=== PATIENT | male | born 1935 | race Caucasian/White ===

== ENCOUNTER → 2019-06-15 08:03 | Outpatient (CLI) | payer MEDICARE, SELFPAY ==
[2019-06-15 10:14] LABS: Absolute Lymphocyte Count 2.06 X10^3/uL (0.83-4.51); Absolute Neutrophil Count 3.8 X10^3/uL (2.0-7.7); Basophil# 0.03 X10^3/uL; Basophil% 0.4 % (0-1); Eosinophil# 0.17 X10^3/uL; Eosinophils% 2.5 % (0-5); Hematocrit 38.8 % (40-54); Hemoglobin 12.1 g/dL (13.0-16.5); Lymphocyte # 2.06 X10^3/ul (4.0); Lymphocyte % 29.9 % (19-41); Mean Corp Hgb Conc 31.2 g/dL (32-36); Mean Corpuscular Hgb 28.8 pg (27.0-32.0); Mean Corpuscular Volume 92.4 fL (80-94); Mean Platelet Vol. 10.9 fl (6.2-12.0); Monocyte# 0.76 X10^3/uL; NRBC Flagged by Analyzer 0 % (0-5); Neutrophil # 3.83 X10^3/uL (2.7-7.7); Neutrophil % 55.8 % (47-70); Platelet Count 265 K/mm3 (150-450); RBC Distribution Width CV 14.6 % (11.6-14.6); White Blood Count 6.9 K/mm3 (4.4-11.0)
[2019-06-15 10:28] LABS: Hemoglobin A1c 7.7 % (4.2-6.3)
[2019-06-15 10:29] LABS: Color, Urine Yellow (Yellow); Glucose, Dipstick Normal (Normal); Ketone-Dipstick Negative (Negative); Leukocyte Esterase-Dipstick Negative /ul (Negative); Nitrite-Dipstick Negative (Negative); Occult Blood-Urine 25 /ul (Negative); Protein-Dipstick Negative (Negative); Specific Gravity, Urine 1.015 (1.002-1.030); Urine Bilirubin Dipstick Negative (Negative); Urine Clarity Clear (Clear); Urine Urobilinogen Normal (Normal)
[2019-06-15 10:34] LABS: ALB/GLOB Ratio 0.8 RATIO (0.9-2.4); AST(SGOT) 16 U/L (15-37); Alanine Aminotransfer ALT/SGPT 18 U/L (16-61); Albumin, Serum 3.2 g/dL (3.2-5.0); Alkaline Phosphatase 53 U/L (45-117); Anion Gap 5 (5-15); BUN 37 mg/dL (7-18); Calcium,Total 8.6 mg/dL (8.5-10.1); Chloride 113 mmol/L (98-107); Cholesterol 125 mg/dL (200); Creatinine, Serum 1.54 mg/dL (0.70-1.30); EST Glomerular Filtration Rate 46 mL/min (>60); Est Glom Filt Rate - Afr Amer 56 mL/min (>60); Globulin 4.2 g/dL (2.2-4.2); Glucose 121 mg/dL (74-106); High Density Lipoprotein 42 mg/dL; PSA,Total - Annual Screen 5.34 ng/mL (0.00-4.00); Potassium 4.5 mmol/L (3.5-5.1); Protein, Total 7.4 g/dL (6.4-8.2); Sodium Level 141 mmol/L (136-145); Thyroid Stim Hormone (TSH) 8.76 uIU/mL (0.358-3.74); Triglycerides 92 mg/dL; Very Low Density Lipoprotein 18 mg/dL (5-40)
== END ==
PROVIDERS: Family Provider Family Medicine; PCP Family Medicine; Referring Provider Family Medicine; Visit Provider Family Medicine
DX: Z00.00 Encounter for general adult medical examination without abnormal findings (principal); N28.9 Disorder of kidney and ureter, unspecified; I10 Essential (primary) hypertension; E11.9 Type 2 diabetes mellitus without complications; E78.5 Hyperlipidemia, unspecified; Z12.5 Encounter for screening for malignant neoplasm of prostate
CPT/HCPCS: 36415; 80053; 80061; 81002; 83036; 84153; 84443; 85025; G0103

== ENCOUNTER → 2019-07-17 17:53 | Outpatient (CLI) | payer MEDICARE, SELFPAY ==
[2019-07-17 17:54] LABS: Bacteria 0 SEEN /hpf (None Seen); Mucous, Urine 0 SEEN /hpf (<or=2+)
[2019-07-17 18:24] LABS: Color, Urine Yellow (Yellow); Glucose, Dipstick Normal (Normal); Ketone-Dipstick Negative (Negative); Leukocyte Esterase-Dipstick Negative /ul (Negative); Nitrite-Dipstick Negative (Negative); Occult Blood-Urine 25 /ul (Negative); Protein-Dipstick 15 mg/dl (Negative); Specific Gravity, Urine 1.015 (1.002-1.030); Urine Bilirubin Dipstick Negative (Negative); Urine Clarity Clear (Clear); Urine Urobilinogen Normal (Normal)
[2019-07-17 18:40] LABS: Red Blood Cells-Urine 0-5 SEEN /hpf (0-5); Squamous Epithelial Cells - UA 0-5 SEEN /hpf (0-5); White Blood Cells 0-5 SEEN /hpf (0-5)
== END ==
PROVIDERS: Family Provider Family Medicine; PCP Family Medicine; Referring Provider Nurse Practitioner Adult Health; Visit Provider Nurse Practitioner Adult Health
DX: R31.9 Hematuria, unspecified (principal)
CPT/HCPCS: 81001

== ENCOUNTER → 2019-09-05 09:13 | Outpatient (CLI) | payer MEDICARE, SELFPAY ==
[2019-09-05 12:15] LABS: Hematocrit 36.1 % (40-54); Hemoglobin 11.1 g/dL (13.0-16.5); Mean Corp Hgb Conc 30.7 g/dL (32-36); Mean Corpuscular Hgb 28.8 pg (27.0-32.0); Mean Corpuscular Volume 93.5 fL (80-94); Mean Platelet Vol. 10.7 fl (6.2-12.0); Platelet Count 293 K/mm3 (150-450); RBC Distribution Width CV 14.5 % (11.6-14.6); RBC Distribution Width SD 49.7 fl (35.1-43.9); Red Blood Count 3.86 M/mm3 (4.6-6.2); White Blood Count 6.8 K/mm3 (4.4-11.0)
[2019-09-05 13:03] LABS: Vitamin D,25 Hydroxy 18.7 ng/mL
[2019-09-05 13:07] LABS: Anion Gap 7 (5-15); BUN 38 mg/dL (7-18); BUN/Creat Ratio 22.2 RATIO (10-20); Calcium,Total 8.9 mg/dL (8.5-10.1); Chloride 110 mmol/L (98-107); Creatinine, Serum 1.71 mg/dL (0.70-1.30); EST Glomerular Filtration Rate 41 mL/min (>60); Est Glom Filt Rate - Afr Amer 49 mL/min (>60); Glucose 232 mg/dL (74-106); Potassium 4.7 mmol/L (3.5-5.1); Sodium Level 139 mmol/L (136-145)
[2019-09-05 14:09] LABS: Protein, Urine (Random) 14.5 mg/dL (<11.9); Protein:Creat Ratio 276 mg/g CRE (0-200)
== END ==
PROVIDERS: PCP Family Medicine; Referring Provider Student in an Organized Health Care Education/Training Program; Visit Provider Student in an Organized Health Care Education/Training Program
DX: N18.3 Chronic kidney disease, stage 3 (moderate) (principal)
CPT/HCPCS: 36415; 80048; 82306; 82570; 83970; 84156; 85027

== ENCOUNTER → 2019-12-20 08:05 | Outpatient (CLI) | payer MEDICARE, SELFPAY ==
[2019-12-20 10:40] LABS: Hemoglobin A1c 7.2 % (3.8-5.6)
[2019-12-20 10:57] LABS: ALB/GLOB Ratio 0.7 RATIO (0.9-2.4); AST(SGOT) 16 U/L (15-37); Alanine Aminotransfer ALT/SGPT 18 U/L (16-61); Albumin, Serum 3.2 g/dL (3.2-5.0); Alkaline Phosphatase 59 U/L (45-117); Anion Gap 8 (5-15); BUN 44 mg/dL (7-18); BUN/Creat Ratio 26.3 RATIO (10-20); Chloride 111 mmol/L (98-107); Cholesterol 145 mg/dL (200); Creatinine, Serum 1.67 mg/dL (0.70-1.30); EST Glomerular Filtration Rate 42 mL/min (>60); Est Glom Filt Rate - Afr Amer 51 mL/min (>60); Globulin 4.4 g/dL (2.2-4.2); Glucose 99 mg/dL (74-106); High Density Lipoprotein 37 mg/dL; Potassium 4.5 mmol/L (3.5-5.1); Protein, Total 7.6 g/dL (6.4-8.2); Sodium Level 141 mmol/L (136-145); Thyroid Stim Hormone (TSH) 7.37 uIU/mL (0.358-3.74); Triglycerides 109 mg/dL; Very Low Density Lipoprotein 22 mg/dL (5-40)
== END ==
PROVIDERS: PCP Family Medicine; Referring Provider Family Medicine; Visit Provider Family Medicine
DX: E03.9 Hypothyroidism, unspecified (principal); N28.9 Disorder of kidney and ureter, unspecified; I10 Essential (primary) hypertension; E78.5 Hyperlipidemia, unspecified; E11.9 Type 2 diabetes mellitus without complications
CPT/HCPCS: 36415; 80053; 80061; 83036; 84443

== ENCOUNTER 2020-04-19 05:56 | Inpatient (IN) | payer MEDICARE, SELFPAY ==
[2020-04-19] VITALS (34 sets, daily range): BP systolic 112–175; BP diastolic 52–101; PULSE 56–90; RESP 12–34; TEMP 36.1–37.7; O2SAT 88–97; BMI 38.9
--- NOTE | 2020-04-19 06:04 | EKG12_ITS ---
Test Reason : SOB Blood Pressure : / mmHG Vent. Rate : 081 BPM Atrial Rate : 081 BPM P-R Int : 180 ms QRS Dur : 088 ms QT Int : 366 ms P-R-T Axes : 026 -09 006 degrees QTc Int : 425 ms Normal sinus rhythm Normal ECG Confirmed by ROBERT BARNETT, JOSE ([id number]), story editor STAN ALVAREZ ([id number]) on 05/02/2020 9:49:52 A M Referred By: RANJEET Confirmed By:DARWIN JONES MD
--- NOTE | 2020-04-19 06:06 | ED.DCSUM_ITS ---
History of Present Illness Chief Complaint: Shortness of Breath Informant: Patient, EMS Onset: Days - 3 Activity at onset: - - gradual onset Timing: Continuous Quality: - - short of breath. Negative for: Wheezing Current Severity: Mild Maximum Severity: Moderate Worsened by: Exertion Relieved by: Oxygen Associated Symptoms: Chills, Cough - chronic, not necessarily worse; related to my allergies''. Negative for: Bloody Sputum, Fever, Rhinorrhea, Sore throat Chest Pain: None Narrative: 84-year-old male diabetic has been feeling very fatigued and ill for the last 3 days. This morning he was so weak he could not stand. Yesterday he needed to use his walker which he usually does not require. Worsening dyspnea, cough does not seem necessarily worse than usual. Achy all over. States that he was in [place] about a week ago for a wedding, when asked if people were safe and wearing masks, he states no. He states that a family member is sick with similar symptoms and it started within the last couple days after he became ill. Patient has not been to the doctor, and this is the first visit this patient has had to a physician for this illness. Does not wear home oxygen, was 78% on room air for EMS, they placed him on 12 L nonrebreather brought him up to the 90s. Patient states that feels much better. - Past Medical History (1) Diabetes mellitus Status: Chronic (2) Asthma Status: Chronic Past Medical History - Allergies and Home Meds Allergies/Adverse Reactions: Allergies No Known Allergies Allergy (Verified 04/19/20 06:11) Lives: Spouse/ Significant Other - Family History Paternal Family History: Reports: No pertinent history Maternal Family History: Reports: No pertinent history Review of Systems General: Reports: Chills, Malaise. Denies: Fever, Sweats Eyes: Denies: Visual changes - bilaterally, Diplopia ENT: Denies: Bilateral ear pain, Rhinorrhea, Sore throat Cardiovascular: Denies: Chest pain, Palpitations Respiratory: Reports: Dyspnea, Cough, Dyspnea on exertion. Denies: Sputum, Orthopnea Gastrointestinal: Denies: Abdominal pain, Nausea, Vomiting, Diarrhea, Melena, Hematochezia Genitourinary: Denies: Dysuria, Hematuria, Frequency Musculoskeletal: Reports: Myalgias, Swelling - chronic BLE, unchanged. Denies: Neck pain, Back pain, Extremity Pain Skin: Reports: Rash - chronic dry skin, red, BLE. Denies: Wounds Neurological: Denies: Headache, Weakness, Numbness Physical Exam Inital Vital Signs reviewed: Yes General: Well nourished, Well developed, No Acute Distress Head: Normocephalic, Atraumatic Eyes: Perrl, EOMI ENT: Moist mucous membranes, No rhinorrhea Neck: Supple, Nontender, No lymphadenopathy, No JVD Cardiovascular: Regular rate, Regular rhythm, No murmurs Respiratory: No distress, Chest nontender, Rales - R base, Rhonchi - R base Abdomen: Soft, Nontender, Nondistended, Normal bowel sounds Back: Nontender, Normal Inspection Extremities: Nontender, Edema - BLE 1+ w/ signs of stasis dermatitis Skin: Normal color, No rash, No Trauma Neurological: Alert, Oriented x3, Cranial nerves II-XII grossly intact, Normal Strength, Normal Sensation Psychological: Normal affect, Normal Mood Diagnostic/Tx/Re-eval Laboratory Tests 04/19/20 04/19/20 Range/Units 06:08 06:08 WBC 13.6 H (4.4-11.0) K/mm3 RBC 3.47 L (4.6-6.2) M/mm3 Hgb 10.4 L (13.0-16.5) g/dL Hct 32.4 L (40-54) % MCV 93.4 (80-94) fL MCH 30.0 (27.0-32.0) pg MCHC 32.1 (32-36) g/dL RDW Std Deviation 47.3 H (35.1-43.9) fl RDW Coeff of Hakan 13.8 (11.6-14.6) % Plt Count 308 (150-450) K/mm3 MPV 10.7 (6.2-12.0) fl Immature Gran % (Auto) 1.000 H (0.0-0.9) % Neut % (Auto) 87.2 H (47-70) % Lymph % (Auto) 6.1 L (19-41) % [place] % (Auto) 4.9 (0-10) % Eos % (Auto) 0.7 (0-5) % Baso % (Auto) 0.1 (0-1) % Absolute Neuts (auto) 11.9 H (2.0-7.7) X10^3/uL Absolute Lymphs (auto) 0.83 (0.83-4.51) X10^3/uL Nucleated RBC % 0 (0-5) % Sodium 131 L (136-145) mmol/L Potassium 4.2 (3.5-5.1) mmol/L Chloride 101 (98-107) mmol/L Carbon Dioxide 21.0 (21.0-32.0) mmol/L Anion Gap 9 (5-15) BUN 50 H (7-18) mg/dL Creatinine 2.51 H (0.70-1.30) mg/dL Estim Creat Clear Calc 20.85 ml/min Est GFR (MDRD) Af Amer 32 L (>60) mL/min Est GFR (MDRD) Non-Af 26 L (>60) mL/min BUN/Creatinine Ratio 19.9 (10-20) RATIO Glucose 205 H (74-106) mg/dL Calcium 8.4 L (8.5-10.1) mg/dL Total Bilirubin 0.40 (0.20-1.00) mg/dL AST 30 (15-37) U/L ALT 25 (16-61) U/L Alkaline Phosphatase 58 (45-117) U/L Troponin I < 0.015 (<0.045) ng/mL Total Protein 7.8 (6.4-8.2) g/dL Albumin 2.4 L (3.2-5.0) g/dL Globulin 5.4 H (2.2-4.2) g/dL Albumin/Globulin Ratio 0.4 L (0.9-2.4) RATIO - Rhythm Strip Rhythm Strip: Sinus Rhythm Rate: 81 Ectopy: None - EKG Initial EKG Interpretation: Sinus Rhythm, No Acute Injury Pattern - normal EKG Prior: Unchanged Treatment - Dyspnea: Oxygen, Albuterol, Antibiotics, Steroid - Medical Decision Making Patient was feeling better with regards to his dyspnea on oxygen. COVID-19 is highly suspected. Given his pneumonia in the meantime he was covered empirically with antibiotics. He has TIFFANI so IV fluids were started, he remained hemodynamically stable, but his oxygenation suffered on a high flow nasal cannula, so he was upgraded to a nonrebreather, during which he desatted into the 80s as well. The patient and his discussed with staff that he wished to be DNR Comfort Care arrest, and did not want to be intubated if it came to that. We had them sign the DNR form of [place] to accompany his chart. He was amenable to trying BiPAP which he tolerated and worked well to oxygenate him better. Awaiting COVID-19 swab that was sent stat. Plan is ICU admission. COVID-19 swab returned positive. Critical care time (excluding procedures): 30-74 minutes - 35 minutes, including time spent discussing with patient's family consultants arranging admission and performing direct patient care to bedside, placing the patient on BiPAP. ED Disposition - Plan for ED Patient: Disposition: Acute Care Hospital [facility] Diagnosis: TIFFANI (acute kidney injury), Acute respiratory failure with hypoxia, Sepsis, Pneumonia due to COVID-19 virus
[2020-04-19] MEDS: 0.9% Normal Saline 1,000 ML 125 ML IV (06:20)
[2020-04-19 06:25] LABS: Absolute Lymphocyte Count 0.83 X10^3/uL (0.83-4.51); Absolute Neutrophil Count 11.9 X10^3/uL (2.0-7.7); Basophil# 0.02 X10^3/uL; Basophil% 0.1 % (0-1); Eosinophil# 0.09 X10^3/uL; Eosinophils% 0.7 % (0-5); Hematocrit 32.4 % (40-54); Hemoglobin 10.4 g/dL (13.0-16.5); Lymphocyte # 0.83 X10^3/ul (4.0); Lymphocyte % 6.1 % (19-41); Mean Corp Hgb Conc 32.1 g/dL (32-36); Mean Corpuscular Volume 93.4 fL (80-94); Mean Platelet Vol. 10.7 fl (6.2-12.0); Monocyte# 0.67 X10^3/uL; Monocyte% 4.9 % (0-10); NRBC Flagged by Analyzer 0 % (0-5); Neutrophil # 11.86 X10^3/uL (2.7-7.7); Neutrophil % 87.2 % (47-70); Platelet Count 308 K/mm3 (150-450); RBC Distribution Width CV 13.8 % (11.6-14.6); RBC Distribution Width SD 47.3 fl (35.1-43.9); Red Blood Count 3.47 M/mm3 (4.6-6.2); White Blood Count 13.6 K/mm3 (4.4-11.0)
--- NOTE | 2020-04-19 06:40 | RAD_ITS ---
STUDY: X-RAY CHEST REASON FOR EXAM: Male, 84 years old. COUGH TECHNIQUE: Single AP portable view of the chest. COMPARISON: None. FINDINGS: Ill-defined subpleural groundglass opacities are seen more prominent in the lung bases , may represent atypical pneumonia or viral pneumonia (COVID-19 ?). There is no demonstrated pleural abnormality. Normal size heart. Normal mediastinum and jeffy. Normal visualized pulmonary arteries. Normal visualized aortic arch and descending thoracic aorta. Normal visualized thoracic spine. There is degenerative osteoarthritis of the bilateral shoulders. There is no demonstrated abnormality of the visualized soft tissue structures of the upper abdomen. RAD/Chest 1 View (Portable) IMPRESSION: Degenerative changes, as described above. Ill-defined subpleural groundglass opacities are seen more prominent in the lung bases , may represent atypical pneumonia or viral pneumonia (COVID-19 ?). Electronically Signed: Adonay Rm, at 7:22 EDT Tel , Service support ,
[2020-04-19 06:42] LABS: ALB/GLOB Ratio 0.4 RATIO (0.9-2.4); AST(SGOT) 30 U/L (15-37); Alanine Aminotransfer ALT/SGPT 25 U/L (16-61); Albumin, Serum 2.4 g/dL (3.2-5.0); Alkaline Phosphatase 58 U/L (45-117); Anion Gap 9 (5-15); BUN 50 mg/dL (7-18); BUN/Creat Ratio 19.9 RATIO (10-20); Calcium,Total 8.4 mg/dL (8.5-10.1); Chloride 101 mmol/L (98-107); Creatinine, Serum 2.51 mg/dL (0.70-1.30); EST Glomerular Filtration Rate 26 mL/min (>60); Est Glom Filt Rate - Afr Amer 32 mL/min (>60); Estimated Creatinine Clearance 20.85 ml/min; Globulin 5.4 g/dL (2.2-4.2); Glucose 205 mg/dL (74-106); Potassium 4.2 mmol/L (3.5-5.1); Protein, Total 7.8 g/dL (6.4-8.2); Sodium Level 131 mmol/L (136-145)
[2020-04-19 06:53] LABS: Lactic Acid 1.4 mmol/L (0.4-1.9)
--- NOTE | 2020-04-19 06:57 | CPS ---
Patient on 14lpm high flow nasal cannula
[2020-04-19] MEDS: Ceftriaxone 1 GM/50 ML BAG IV (07:06)
[2020-04-19] MEDS: dexAMETHasone 10 MG/ML Vial 6 MG IV (08:12)
--- NOTE | 2020-04-19 08:14 | NURSING ---
ICU 8
--- NOTE | 2020-04-19 08:25 | ED.RN ---
icu will call back for report
[2020-04-19 08:30] LABS: D-Dimer Quantitative (DVT/PE) 2.78 FEU/ug/m (0.27-0.49)
--- NOTE | 2020-04-19 10:52 | CON.PCM_ITS ---
Problem List (1) Diabetes mellitus Status: Chronic Qualifiers: Diabetes mellitus type: type 2 Diabetes mellitus senior living insulin use: without terminal press operator use Diabetes mellitus complication status: with kidney complications Diabetes mellitus complication detail: with chronic kidney disease Chronic kidney disease stage: stage 3 (moderate) Chronic kidney disease stage 3 subtype: stage 3a (GFR 45-59) Qualified Code(s): E11.21 - Type 2 diabetes mellitus with diabetic nephropathy; N18.31 - Chronic kidney disease, stage 3a (2) Asthma Status: Chronic Qualifiers: Asthma severity: mild Asthma persistence: intermittent Asthma co mplication type: unspecified Qualified Code(s): J45.20 - Mild intermittent asthma, uncomplicated (3) TIFFANI (acute kidney injury) Status: Acute (4) Pneumonia Status: Acute (5) Acute respiratory failure with hypoxia Status: Acute (6) Sepsis Status: Acute (7) COVID-19 Status: Acute Reason for Consult Date of Consultation: 04/19/20 Reason for Consultation: Respiratory failure History of Present Illness: The patient is an 84 year old M, with past medical history listed below, who presented to [facility] on 04/19/2020 via EMS secondary to a gradual onset of shortness of breath, chills and body aches. Patient had originally thought the cough was secondary to his allergies, but shortness of breath became progressively worse. Patient stated that this morning he was so weak that he could not stand and yesterday had a new onset need for a walker. Patient stated that he was in [place] in March for a wedding were mass were not used. Patient does report a family member with similar type symptoms. Patient reportedly had not been seen by primary care physician prior to transport. On EMS, patient was noted to be hypoxic at 78% on room air and was placed on a nonrebreather to transport to the emergency department. On arrival to the emergency department, patient was improved from a dyspneic standpoint on a nonrebreather. Patient had a chest x-ray showing bilateral infiltrates, so was initiated on antibiotics. Patient also had an acute worsening in renal function, so was placed on IV fluids. Patient's oxygenation continue to decrease with saturations in the 80s despite a nonrebreather. Patient was noted to be a DNR Comfort Care arrest without intubation, but was placed on BiPAP with good response. Laboratory work-up was significant for a leukocytosis of 13.6 with hemoglobin of 10.4. Chemistries show hyponatremia at 131 with bicarbonate of 21, BUN 50 and creatinine of 2.5. Glucose was slightly elevated at 205. Liver function tests were within normal limits. Patient was then transported to the intensive care unit for further evaluation. On arrival to the intensive care unit, patient reports his situation is much improved compared to previous. Patient denies any GI symptoms such as nausea, vomiting or diarrhea. Patient does have chronic lower extremity wounds on the anterior aspect that he attributes to diabetes and states these are grossly unchanged compared to previous. Patient does report a history of asthma, but does not use any inhalers at baseline. Patient reports he has had diabetes for several years. Patient's blood sugar tends to be in the 130s to 40s. Patient states he can become symptomatic at about 100. Review of systems otherwise negative from a constitutional, HEENT, respiratory, cardiovascular, GI, genitourinary, musculoskeletal, skin, neurologic, psychiatric and hematologic system unless stated above. Past Medical History Past Medical History (Chronic Problems): Chronic Problems Diabetes mellitus (Chronic) Asthma (Chronic) Allergies No Known Allergies Allergy (Verified 04/19/20 06:11) Home Medications: Ambulatory Orders Medication Instructions Recorded Levothyroxine [Synthroid] 125 mcg PO DAILY 04/19/20 Losartan Potassium [Cozaar] 50 mg PO DAILY 04/19/20 Simvastatin 20 mg PO DAILY 04/19/20 metFORMIN HCl 04/19/20 Lives: Spouse/ Significant Other Smoking Status: Never smoker Review of Systems Comment: See HPI Patient Problems: Active and Suspected Problems TIFFANI (acute kidney injury) (Acute) Pneumonia (Acute) Acute respiratory failure with hypoxia (Acute) Sepsis (Acute) Objective: All imaging was personally reviewed. Chest x-ray shows bilateral infiltrates with possible left-sided pleural effusion. Patient has no pulmonary function test or echocardiogram available for review. - Physical Exam Vitals/I&O's: Vital Signs Temp Pulse Resp BP Pulse Ox 36.6 C 75 33 H 131/57 H 95 04/19/20 08:05 04/19/20 08:05 04/19/20 08:05 04/19/20 08:05 04/19/20 08:05 Oxygen Flow Rate (L/min) 14 Oxygen Delivery Method Bi-pap Weight: 112.582 kg Body Mass Index (BMI) 38.8 Intake and Output for Last 24 Hours 04/17/20 04/18/20 04/19/20 23:59 23:59 23:59 Intake Total 305 / 305 Output Total 200 / 200 Balance 105 / 105 General: Alert, Oriented x3, Cooperative, No apparent distress - On BiPAP therapy, - - Moderate conversational dyspnea. HEENT: Atraumatic, PERRLA, EOMI, Normocephalic, - - No scleral icterus or injection noted Oral: Moist Mucosa, No Gingival or Mucosal Lesions/ Ulcerations Neck: Supple, No JVD, No Nodes, Trachea Midline Lungs: No rhonchi, No wheeze, Diminished, Rales - Bilateral bases Cardiovascular: Regular rate, Regular Rhythm, Normal S1, Normal S2, No murmurs, No rub noted, No Gallop Abdomen: Bowel Sounds Present, Soft, Non Tender, Non-Distended, Obese Extremities: No clubbing, No cyanosis, Edema - Bilateral lower extremities Skin: - - Psoriatic type rash noted on the anterior aspect of bilateral legs. Some surrounding erythema without streaking, crepitus or induration Musculoskeletal: No Tenderness to Palpation of Joints or Extremities Lymphatic: No Cervical, Supraclavicular, or Inguinal Adenopathy Neurological: Cranial nerves II-XII grossly intact, Deep Tendon Reflexes 2+/4 and Symmetrical, Neuro grossly intact Psych/Mental Status: Alert and oriented to time, place, person, mood and affect Laboratory Results 04/19/20 06:08: WBC 13.6 H, RBC 3.47 L, Hgb 10.4 L, Hct 32.4 L, MCV 93.4, MCH 30.0, MCHC 32.1, RDW Std Deviation 47.3 H, RDW Coeff of Hakan 13.8, Plt Count 308, MPV 10.7, Immature Gran % (Auto) 1.000 H, Neut % (Auto) 87.2 H, Lymph % (Auto) 6.1 L, [place] % (Auto) 4.9, Eos % (Auto) 0.7, Baso % (Auto) 0.1, Absolute Neuts (auto) 11.9 H, Absolute Lymphs (auto) 0.83, Nucleated RBC % 0 04/19/20 06:08: Sodium 131 L, Potassium 4.2, Chloride 101, Carbon Dioxide 21.0, Anion Gap 9, BUN 50 H, Creatinine 2.51 H, Estim Creat Clear Calc 20.85, Est GFR (MDRD) Af Amer 32 L, Est GFR (MDRD) Non-Af 26 L, BUN/Creatinine Ratio 19.9, Glucose 205 H, Calcium 8.4 L, Total Bilirubin 0.40, AST 30, ALT 25, Alkaline Phosphatase 58, Troponin I < 0.015, Total Protein 7.8, Albumin 2.4 L, Globulin 5.4 H, Albumin/Globulin Ratio 0.4 L 04/19/20 06:08: Lactic Acid 1.4 04/19/20 06:08: D-Dimer Quant (PE/DVT) 2.78 H* 04/19/20 06:10: COVID-19 (CAITLIN) Detected Current Medications Acetaminophen (Acetaminophen 325 Mg Tablet) 650 mg PO Q6H PRN PRN PRN Reason: Pain Score 1-10/Temp > 100.7 F Albuterol Sulfate (Albuterol Sulfate 8 Gm Inhaler (60 Puffs)) 2 puff INHALATION Q6HWA.RT ZENA Albuterol Sulfate (Albuterol Sulfate 8 Gm Inhaler (60 Puffs)) 2 puff INHALATION Q2H PRN PRN PRN Reason: SOB/Wheezing Apixaban (Apixaban 2.5 Mg Tablet) 2.5 mg PO BID ZENA Atorvastatin Calcium (Atorvastatin Calcium 10 Mg Tablet) 10 mg PO DAILY ZENA Dexamethasone Sodium Phosphate (Dexamethasone 10 Mg/Ml Vial) 6 mg IV DAILY ZENA Sodium Chloride () 1,000 mls @ 125 mls/hr IV .Q8H ZENA Last Admin: 04/19/20 06:20 Dose: 125 mls/hr Documented by: Sodium Chloride () 250 mls @ 15 mls/hr IV .[id number] PRN PRN Reason: Saline Flush Sodium Chloride () 250 mls @ 15 mls/hr IV .[id number] PRN PRN Reason: Additional IVPB Infusion Remdesivir (Investigational) (200 mg/ Sodium Chloride) 250 mls @ 125 mls/hr IV X1 ONE; Protocol Stop: 04/19/20 12:59 Remdesivir (Investigational) (100 mg/ Sodium Chloride) 250 mls @ 125 mls/hr IV DAILY ZENA; Protocol Stop: 04/23/20 11:59 Insulin Human Lispro (Insulin Lispro 100 Unit/Ml Insuln.Pen) 0 unit SC Q6 ZENA; Protocol Levothyroxine Sodium (Levothyroxine 125 Mcg Tablet) 125 mcg PO DAILY [facility] Losartan Potassium (Losartan Potassium 50 Mg Tablet) 50 mg PO DAILY [facility] Nystatin (Nystatin Powder 15gm Bottle) 1 applic TOPICAL BID [facility]; Protocol Sodium Chloride (0.9% Saline Lock 10 Ml Syringe) 10 - 40 ml IV UD PRN PRN Reason: SALINE FLUSH Assessment/Plan Active and Suspected Problems TIFFANI (acute kidney injury) (Acute) Pneumonia (Acute) Acute respiratory failure with hypoxia (Acute) Sepsis (Acute) RECOMMENDATIONS: 1. Initiate Remdesivir, steroids and anticoagulation 2. Obtain type and screen for convalescent serum 3. Obtain CRP and pro calcitonin 4. Wean oxygen as tolerated 5. BiPAP breaks for meds only 6. Confirmed DNR Comfort Care arrest without intubation 7. Initiate monitoring labs for investigational drugs 8. Empiric antibiotics for pneumonia pending culture results IMPRESSIONS: 1. Acute hypoxic respiratory failure secondary to COVID-19 Unclear etiology at this time. Patient does have a significant leukocytosis with left shift. Patient will be placed on empiric antibiotics pending culture results. Given patient's marginal respiratory status, high oxygen requirements and CODE STATUS, patient has agreed to Remdesivir, steroids, anticoagulation and convalescent serum. Patient will need type and screen completed. Will obtain a CRP and pro calcitonin to help direct future antibiotics. Cultures have been ordered. 2. Acute on chronic kidney disease stage III Clinical suspicion for prerenal etiology secondary to hypoxia and increased insensible losses. Patient did receive some fluid in the ER. Patient has some rales on exam and it is unclear if this is secondary to COVID-19 versus fluid overload. Will treat patient with fluid boluses as necessary for urine output to avoid overload. Patient's Cozaar will be discontinued until renal function stabilizes. No indication for renal replacement therapy at this time. 3. Diabetes mellitus type 2 Patient has been placed on Decadron secondary to COVID-19. Will need to follow blood sugars very closely. Patient may require basal insulin, but await 24 hours for coverage requirements. 4. Obesity/advanced age/hyperlipidemia/hypothyroidism Complicates care, management, recovery and prognosis. Okay to continue with baseline medications except for Cozaar secondary to acute kidney injury. TIME: 33 minutes critical care time spent addressing patient's acute hypoxic respiratory failure, acute kidney injury, diabetes mellitus, COVID-19, review of all data and collaboration with care team (9:30 AM to 11 AM) [id number]: [id number] Critical care first hour
[2020-04-19 12:35] LABS: Allen Test Positive; Base Excess -7 mmol/L (-2 to +2); Bicarbonate 18.7 mmol/L (22-26); Blood Gas Specimen Type ART; FI02 65; O2 Delivery Device BiPAP; PEEP 7; PO2 64 mmHG (75-100); SITE R Radial; SO2 91 % (95-99); Total Carbon Dioxide 20 mmol/L; pCO2 33.3 mmHg (35-45); pH 7.36 (7.35-7.45)
[2020-04-19] MEDS: Insulin Lispro 100 UNIT/ML INSULN.PEN SC ×3 (12:37→20:29)
[2020-04-19] MEDS: Nystatin Powder 15gm Bottle 1 APPLIC TOPICAL ×2 (12:38→20:32)
[2020-04-19] MEDS: APIXABAN 2.5 MG TABLET PO ×2 (12:38→20:29)
[2020-04-19] MEDS: Levothyroxine 125 MCG Tablet PO (12:38)
[2020-04-19 13:11] LABS: Alkaline Phosphatase 55 U/L (45-117)
[2020-04-19] MEDS: Albuterol Sulfate 8 gm Inhaler (60 puffs) 2 PUFF INHALATION ×2 (13:11→20:20)
[2020-04-19 13:59] LABS: Procalcitonin 1.43 ng/mL (0.00-0.09)
--- NOTE | 2020-04-19 14:35 | PCM.HP.STD ---
Problem List (1) Shortness of breath Status: Acute (2) Weakness Status: Acute (3) Nonproductive cough Status: Acute History of Present Illness Date of Admission: 04/19/20 Chief Complaint: Shortness of breath, generalized weakness, nonproductive cough The patient is a 84 year old M who was seen in the emergency room today after being brought in by squad for complaints of shortness of breath, cough, generalized weakness, and fever at home. Patient also complained of chills. Patient's states the patient had been complaining of the symptoms all week long but it was not until yesterday that he ran a temperature at home. Patient denies any sick contacts recently. Work-up in the emergency room occluded labs which showed an elevated white blood cell count at 13.6, hemoglobin was 10.4, D-dimer was elevated at 2.78, CMP revealed a creatinine of 2.51, BUN of 50, and glucose of 205. Patient's troponin was not elevated, pro calcitonin was elevated at 1.43. Patient had chest x-ray which showed bilateral diffuse infiltrates, he required BiPAP in the emergency room for adequate oxygenation, ABG on BiPAP revealed a pH of 7.36, PCO2 is 33.3, and PO2 of 64.- this was on 65% O2. Discussions were carried out with the patient and his concerning CODE STATUS, he confirmed that he has a DO NOT RESUSCITATE no intubation patient but would except aggressive care otherwise. Patient was admitted to ICU, pulmonary medicine will consult on patient, he was given Zithromax and Rocephin in the emergency room, he was also placed on dexamethasone, he was placed on Eliquis due to his elevated D-dimer. Past Medical History Past Medical History (Chronic Problems): Chronic Problems Diabetes mellitus (Chronic) Asthma (Chronic) Allergies No Known Allergies Allergy (Verified 04/19/20 06:11) Home Medications: Ambulatory Orders Medication Instructions Recorded Levothyroxine [Synthroid] 125 mcg PO DAILY 04/19/20 Losartan Potassium [Cozaar] 50 mg PO DAILY 04/19/20 Simvastatin 20 mg PO DAILY 04/19/20 metFORMIN HCl 04/19/20 Surgical History: herniorrhaphy Psychiatric History: No pertinent psych hx Lives: Spouse/ Significant Other Smoking Status: Never smoker Tobacco Use: Non-smoker Alcohol: None Drugs: None - *Family History Paternal History Items: No pertinent history Maternal History Items: No pertinent history Review of Systems Constitutional: Reports: Fever, Malaise, Weakness, Fatigue. Denies: Anorexia, Chills, Night Sweats, Weight Change Eyes: Denies: Cataracts, Conjunctivae Inflammation, Double vision, Drainage HEENT: Denies: Difficulty Swallowing, Dysphasia, Ear Pain, Eye Pain, Hearing Changes, Nasal bleeding, Nasal Congestion, Post Nasal Drip Cardiovascular: Denies: Chest Pain, Claudication, Chest Pressure, Chest Tightness, Edema, Palpitations Respiratory: Reports: Cough, Shortness of Breath, Shortness of breath at rest, Shortness of breath upon exertion. Denies: Hemoptysis, Sputum production Gastrointestinal: Denies: Abdominal Pain, Constipation, Diarrhea, Hematemesis, Hematochezia, Nausea, Melena, Vomiting Genitourinary: Denies: Dysuria, Frequency, Hematuria, Hesitancy, Nocturia, Retention, Urgency Musculoskeletal: Denies: Joint Pain, Joint stiffness, Joint swelling Skin: Denies: Dryness, Jaundice, Pruritis, Rash Neurological: Denies: Blurred vision, Double vision, Change in Speech, Slurred speech, Difficulty swallowing, Focal weakness, Incoordination, Numbness, Tingling Psychiatric: Denies: Anxiety, Depression, Homicidal Ideations, Suicidal Ideations Endocrine: Denies: Change in Body Habitus, Heat/ Cold Intolerance, Polydipsia, Polyuria Hematologic/ Lymphatic: Denies: Adenopathy, Anemia, Easy Bruising, Easy Bleeding, Petechiae, Purpura VTE Information - Inpt Only VTE Present on Admission: No VTE Mechan Device Prophylaxis: None VTE Pharm Prophylaxis ordered?: No Reason prophylaxis not ordered:: Treatment Not Indicated - Patient will be placed on Eliquis 2.5 mg twice daily Patient Problems: Active and Suspected Problems TIFFANI (acute kidney injury) (Acute) Pneumonia (Acute) Acute respiratory failure with hypoxia (Acute) Sepsis (Acute) COVID-19 (Acute) Shortness of breath (Acute) Weakness (Acute) Nonproductive cough (Acute) - Physical Exam Vitals/I&O's: Vital Signs Temp Pulse Resp BP Pulse Ox 97.5 F L 58 L 31 H 119/75 93 04/19/20 12:00 04/19/20 14:00 04/19/20 14:00 04/19/20 14:00 04/19/20 14:00 Oxygen Flow Rate (L/min) 14 Oxygen Delivery Method Nasal Cannula Weight: 112.582 kg Body Mass Index (BMI) 38.8 Intake and Output for Last 24 Hours 04/17/20 04/18/20 04/19/20 23:59 23:59 23:59 Intake Total 1100.83 / 1100.83 Output Total 200 / 200 Balance 900.83 / 900.83 General: Alert, Oriented x3, Cooperative, Well developed, Well nourished HEENT: Atraumatic, PERRLA, EOMI, Normocephalic Oral: Moist Mucosa Neck: Supple, No JVD, Negative Carotid Bruits, No Nuchal Rigidity, Trachea Midline, Thyroid Normal Size and Texture Lungs: Clear to auscultation, Normal air movement, No rhonchi, No wheeze, No rales Cardiovascular: Regular rate, Regular Rhythm, Normal S1, Normal S2, No murmurs, PMI Normal, No rub noted, No Gallop Abdomen: Bowel Sounds Present, Soft, Non Tender, Non-Distended Extremities: No clubbing, No cyanosis, No edema, Capillary Refill Less than 3 Seconds Skin: No rashes, No breakdown Musculoskeletal: No Tenderness to Palpation of Joints or Extremities Neurological: Cranial nerves II-XII grossly intact, Neuro grossly intact, Sensory exam intact to light touch and pain, Coordination normal Psych/Mental Status: Normal Affect, Appropriate, Alert and oriented to time, place, person, mood and affect Laboratory Results 04/19/20 06:08: WBC 13.6 H, RBC 3.47 L, Hgb 10.4 L, Hct 32.4 L, MCV 93.4, MCH 30.0, MCHC 32.1, RDW Std Deviation 47.3 H, RDW Coeff of Hakan 13.8, Plt Count 308, MPV 10.7, Immature Gran % (Auto) 1.000 H, Neut % (Auto) 87.2 H, Lymph % (Auto) 6.1 L, [place] % (Auto) 4.9, Eos % (Auto) 0.7, Baso % (Auto) 0.1, Absolute Neuts (auto) 11.9 H, Absolute Lymphs (auto) 0.83, Nucleated RBC % 0 04/19/20 06:08: Sodium 131 L, Potassium 4.2, Chloride 101, Carbon Dioxide 21.0, Anion Gap 9, BUN 50 H, Creatinine 2.51 H, Estim Creat Clear Calc 20.85, Est GFR (MDRD) Af Amer 32 L, Est GFR (MDRD) Non-Af 26 L, BUN/Creatinine Ratio 19.9, Glucose 205 H, Calcium 8.4 L, Total Bilirubin 0.40, AST 30, ALT 25, Alkaline Phosphatase 58, Troponin I < 0.015, Total Protein 7.8, Albumin 2.4 L, Globulin 5.4 H, Albumin/Globulin Ratio 0.4 L 04/19/20 06:08: Lactic Acid 1.4 04/19/20 06:08: D-Dimer Quant (PE/DVT) 2.78 H* 04/19/20 06:10: COVID-19 (CAITLIN) Detected 04/19/20 11:41: Specimen Type ART, Sample Site R Radial, pH 7.36, Bicarbonate Actual 18.7 L, Total CO2 20, Base Excess -7 L, O2 Saturation 91 L, O2 % 65, ABG pCO2 33.3 L, ABG pO2 64 L, Stone Test Positive, O2 Delivery Device BiPAP, POC PEEP 7 04/19/20 12:30: Alkaline Phosphatase 55, C-React Prot Ext Range 251.00 H 04/19/20 12:30: Procalcitonin 1.43 H 04/19/20 12:30: Blood Type A POSITIVE, Antibody Screen NEGATIVE Current Medications Acetaminophen (Acetaminophen 325 Mg Tablet) 650 mg PO Q6H PRN PRN PRN Reason: Pain Score 1-10/Temp > 100.7 F Albuterol Sulfate (Albuterol Sulfate 8 Gm Inhaler (60 Puffs)) 2 puff INHALATION Q6HWA.RT [facility] Last Admin: 04/19/20 13:11 Dose: 2 puff Documented by: Albuterol Sulfate (Albuterol Sulfate 8 Gm Inhaler (60 Puffs)) 2 puff INHALATION Q2H PRN PRN PRN Reason: SOB/Wheezing Apixaban (Apixaban 2.5 Mg Tablet) 2.5 mg PO BID [facility] Last Admin: 04/19/20 12:38 Dose: 2.5 mg Documented by: Atorvastatin Calcium (Atorvastatin Calcium 10 Mg Tablet) 10 mg PO DAILY [facility] Dexamethasone Sodium Phosphate (Dexamethasone 10 Mg/Ml Vial) 6 mg IV DAILY [facility]ENA Sodium Chloride () 250 mls @ 15 mls/hr IV .[id number] PRN PRN Reason: Saline Flush Sodium Chloride () 250 mls @ 15 mls/hr IV .[id number] PRN PRN Reason: Additional IVPB Infusion Remdesivir (Investigational) (100 mg/ Sodium Chloride) 250 mls @ 125 mls/hr IV DAILY ZENA; Protocol Stop: 04/23/20 11:59 Insulin Human Lispro (Insulin Lispro 100 Unit/Ml Insuln.Pen) 0 unit SC Q6 [facility]ENA; Protocol Last Admin: 04/19/20 12:37 Dose: 6 u Documented by: Levothyroxine Sodium (Levothyroxine 125 Mcg Tablet) 125 mcg PO DAILY [facility] Last Admin: 04/19/20 12:38 Dose: 125 mcg Documented by: Nystatin (Nystatin Powder 15gm Bottle) 1 applic TOPICAL BID ZENA; Protocol Last Admin: 04/19/20 12:38 Dose: 1 applic Documented by: Sodium Chloride (0.9% Saline Lock 10 Ml Syringe) 10 - 40 ml IV UD PRN PRN Reason: SALINE FLUSH Assessment/Plan All Active Problems TIFFANI (acute kidney injury) (Acute) Pneumonia (Acute) Acute respiratory failure with hypoxia (Acute) Sepsis (Acute) COVID-19 (Acute) Shortness of breath (Acute) Weakness (Acute) Nonproductive cough (Acute) #1 acute COVID-19 infection with bilateral pneumonia-patient will be admitted to ICU, he will be placed on antibiotics until cultures result negative, critical care will see the patient, patient was given IV dexamethasone in the emergency room #2 acute hypoxic respiratory failure secondary to COVID-19 infection with bilateral pneumonia-patient is currently on BiPAP at the time of his admission to ICU, oxygen will be titrated if possible #3 acute bilateral community-acquired pneumonia-probably secondary to COVID-19 infection, bacterial infection is not excluded at this time, patient will be maintained on Zosyn. #4 acute kidney injury a backdrop of chronic kidney disease stage III (secondary to type 2 diabetes)-patient's baseline creatinine is 1.6-1.7, patient will receive IV fluids and labs will be rechecked tomorrow #5 type 2 diabetes-blood sugars will be monitored, insulin will be given per protocol, patient will remain on his home medications for type 2 diabetes #6 essential hypertension-patient will remain on his present blood pressure medications #7 hyperlipidemia #8 hypothyroidism #9 elevated [id number] unknown at this time, I do not feel the patient requires a CTA of his chest at this time, he will be placed on Eliquis 2.5 mg twice daily Inpatient E&M: 06419 Init Hosp L3
[2020-04-19] MEDS: Famotidine 20 MG Tablet PO (20:30)
[2020-04-19 21:45] LABS: Bedside Glucose 249 mg/dL (70-110)
[2020-04-20] VITALS (33 sets, daily range): BP systolic 107–158; BP diastolic 46–87; PULSE 60–113; RESP 12–42; TEMP 36.1–37.3; O2SAT 84–94; BMI 38.0
[2020-04-20 04:14] LABS: Absolute Lymphocyte Count 0.74 X10^3/uL (0.83-4.51); Absolute Neutrophil Count 13.6 X10^3/uL (2.0-7.7); Basophil# 0.01 X10^3/uL; Basophil% 0.1 % (0-1); Hematocrit 31.6 % (40-54); Hemoglobin 9.9 g/dL (13.0-16.5); Lymphocyte # 0.74 X10^3/ul (4.0); Lymphocyte % 4.9 % (19-41); Mean Corp Hgb Conc 31.3 g/dL (32-36); Mean Corpuscular Volume 92.7 fL (80-94); Mean Platelet Vol. 10.6 fl (6.2-12.0); Monocyte# 0.67 X10^3/uL; Monocyte% 4.4 % (0-10); NRBC Flagged by Analyzer 0 % (0-5); Neutrophil # 13.61 X10^3/uL (2.7-7.7); Neutrophil % 89.7 % (47-70); Platelet Count 320 K/mm3 (150-450); RBC Distribution Width CV 13.7 % (11.6-14.6); RBC Distribution Width SD 46.9 fl (35.1-43.9); Red Blood Count 3.41 M/mm3 (4.6-6.2); White Blood Count 15.2 K/mm3 (4.4-11.0)
[2020-04-20 04:29] LABS: ALB/GLOB Ratio 0.4 RATIO (0.9-2.4); AST(SGOT) 32 U/L (15-37); Alanine Aminotransfer ALT/SGPT 29 U/L (16-61); Albumin, Serum 2.3 g/dL (3.2-5.0); Alkaline Phosphatase 64 U/L (45-117); Anion Gap 9 (5-15); BUN 49 mg/dL (7-18); BUN/Creat Ratio 23.6 RATIO (10-20); Calcium,Total 9.1 mg/dL (8.5-10.1); Chloride 104 mmol/L (98-107); Creatinine, Serum 2.08 mg/dL (0.70-1.30); EST Glomerular Filtration Rate 33 mL/min (>60); Est Glom Filt Rate - Afr Amer 39 mL/min (>60); Estimated Creatinine Clearance 25.16 ml/min; Globulin 5.5 g/dL (2.2-4.2); Glucose 201 mg/dL (74-106); Potassium 4.3 mmol/L (3.5-5.1); Protein, Total 7.8 g/dL (6.4-8.2); Sodium Level 135 mmol/L (136-145)
--- NOTE | 2020-04-20 05:37 | RAD_ITS ---
STUDY: X-RAY CHEST REASON FOR EXAM: Male, 84 years old. PNEUMONIA TECHNIQUE: AP COMPARISON: 04/19/2020 FINDINGS: EKG leads project over the chest. Bilateral interstitial and groundglass opacities are redemonstrated with partial clearing of opacity in the left lung base. No pneumothorax or sizable effusion. Normal size heart. Normal mediastinum and jeffy. Normal visualized pulmonary arteries. Normal visualized aortic arch and descending thoracic aorta. No acute bony process. There is no demonstrated abnormality of the visualized soft tissue structures of the upper abdomen. RAD/Chest 1 View (Portable) IMPRESSION: 1. Multilobar infiltrates, partial clearing of left lung base. Typical/atypical pneumonia and pulmonary edema should be considered. Electronically Signed: Aristeo Murray MD ([place]) at 9:03 EDT , Service support ,
[2020-04-20] MEDS: Albuterol Sulfate 8 gm Inhaler (60 puffs) 2 PUFF INHALATION (07:30)
--- NOTE | 2020-04-20 07:44 | PN_ITS ---
Subjective: Patient did okay overnight. Patient did have to be transitioned to high flow nasal cannula and is requiring 70 to 80% FiO2 to maintain saturations. Patient overall feels subjectively improved compared to previous. Patient did have convalescent serum administered yesterday and tolerated this well. General: Alert, Oriented x3, Cooperative, No apparent distress, - - Obese. Moderate conversational dyspnea. HEENT: Atraumatic, PERRLA, EOMI, Normocephalic, - - Slight scleral injection without icterus Oral: Moist Mucosa, No Gingival or Mucosal Lesions/ Ulcerations, - - Crowded posterior pharynx Neck: Supple, No Nodes, Trachea Midline, JVD, Right Lungs: No rhonchi, Diminished, Rales, Wheezes, - - Symmetric expansion. Cardiovascular: Regular rate, Regular Rhythm, Normal S1, Normal S2, No murmurs, No rub noted, No Gallop Abdomen: Bowel Sounds Present, Soft, Non Tender, Non-Distended, Obese Extremities: No clubbing, No cyanosis, Edema Skin: - - Lower extremity rash unchanged compared to previous Musculoskeletal: Tenderness - Palpation of the lower extremities Lymphatic: No Cervical, Supraclavicular, or Inguinal Adenopathy Neurological: Cranial nerves II-XII grossly intact, Neuro grossly intact, Motor Exam 5/5 strength throughout Psych/Mental Status: Appropriate, Flat Affect Vital Signs Temp Pulse Resp BP Pulse Ox 36.2 C L 76 19 H 139/58 H 92 04/20/20 04:00 04/20/20 06:00 04/20/20 06:00 04/20/20 06:00 04/20/20 06:00 Oxygen Flow Rate (L/min) 60 Oxygen Delivery Method Airvo Weight: 110.178 kg Body Mass Index (BMI) 38.8 Intake and Output for Last 24 Hours 04/18/20 04/19/20 04/20/20 23:59 23:59 23:59 Intake Total 2100.83 / 2160.83 60 / 60 Output Total 825 / 1075 750 / 750 Balance 1275.83 / 1085.83 -690 / -690 Labs (Last 48 Hours) 04/19/20 04/19/20 04/19/20 06:08 06:08 06:08 WBC 13.6 H RBC 3.47 L Hgb 10.4 L Hct 32.4 L MCV 93.4 MCH 30.0 MCHC 32.1 RDW Std Deviation 47.3 H RDW Coeff of Hakan 13.8 Plt Count 308 MPV 10.7 Immature Gran % (Auto) 1.000 H Neut % (Auto) 87.2 H Lymph % (Auto) 6.1 L [place] % (Auto) 4.9 Eos % (Auto) 0.7 Baso % (Auto) 0.1 Absolute Neuts (auto) 11.9 H Absolute Lymphs (auto) 0.83 Nucleated RBC % 0 D-Dimer Quant (PE/DVT) Specimen Type Sample Site pH Bicarbonate Actual Total CO2 Base Excess O2 Saturation O2 % ABG pCO2 ABG pO2 Stone Test O2 Delivery Device POC PEEP Sodium 131 L Potassium 4.2 Chloride 101 Carbon Dioxide 21.0 Anion Gap 9 BUN 50 H Creatinine 2.51 H Estim Creat Clear Calc 20.85 Est GFR (MDRD) Af Amer 32 L Est GFR (MDRD) Non-Af 26 L BUN/Creatinine Ratio 19.9 Glucose 205 H Lactic Acid 1.4 Calcium 8.4 L Total Bilirubin 0.40 AST 30 ALT 25 Alkaline Phosphatase 58 Troponin I < 0.015 C-React Prot Ext Range Total Protein 7.8 Albumin 2.4 L Globulin 5.4 H Albumin/Globulin Ratio 0.4 L Procalcitonin COVID-19 (CAITLIN) POC Glucose Blood Type Antibody Screen 04/19/20 04/19/20 04/19/20 06:08 06:10 11:41 WBC RBC Hgb Hct MCV MCH MCHC RDW Std Deviation RDW Coeff of Hakan Plt Count MPV Immature Gran % (Auto) Neut % (Auto) Lymph % (Auto) [place] % (Auto) Eos % (Auto) Baso % (Auto) Absolute Neuts (auto) Absolute Lymphs (auto) Nucleated RBC % D-Dimer Quant (PE/DVT) 2.78 H* Specimen Type ART Sample Site R Radial pH 7.36 Bicarbonate Actual 18.7 L Total CO2 20 Base Excess -7 L O2 Saturation 91 L O2 % 65 ABG pCO2 33.3 L ABG pO2 64 L Stone Test Positive O2 Delivery Device BiPAP POC PEEP 7 Sodium Potassium Chloride Carbon Dioxide Anion Gap BUN Creatinine Estim Creat Clear Calc Est GFR (MDRD) Af Amer Est GFR (MDRD) Non-Af BUN/Creatinine Ratio Glucose Lactic Acid Calcium Total Bilirubin AST ALT Alkaline Phosphatase Troponin I C-React Prot Ext Range Total Protein Albumin Globulin Albumin/Globulin Ratio Procalcitonin COVID-19 (CAITLIN) Detected POC Glucose Blood Type Antibody Screen 04/19/20 04/19/20 04/19/20 12:30 12:30 12:30 WBC RBC Hgb Hct MCV MCH MCHC RDW Std Deviation RDW Coeff of Hakan Plt Count MPV Immature Gran % (Auto) Neut % (Auto) Lymph % (Auto) [place] % (Auto) Eos % (Auto) Baso % (Auto) Absolute Neuts (auto) Absolute Lymphs (auto) Nucleated RBC % D-Dimer Quant (PE/DVT) Specimen Type Sample Site pH Bicarbonate Actual Total CO2 Base Excess O2 Saturation O2 % ABG pCO2 ABG pO2 Stone Test O2 Delivery Device POC PEEP Sodium Potassium Chloride Carbon Dioxide Anion Gap BUN Creatinine Estim Creat Clear Calc Est GFR (MDRD) Af Amer Est GFR (MDRD) Non-Af BUN/Creatinine Ratio Glucose Lactic Acid Calcium Total Bilirubin AST ALT Alkaline Phosphatase 55 Troponin I C-React Prot Ext Range 251.00 H Total Protein Albumin Globulin Albumin/Globulin Ratio Procalcitonin 1.43 H COVID-19 (CAITLIN) POC Glucose Blood Type A POSITIVE Antibody Screen NEGATIVE 04/19/20 04/20/20 04/20/20 20:25 04:00 04:00 WBC 15.2 H RBC 3.41 L Hgb 9.9 L Hct 31.6 L MCV 92.7 MCH 29.0 MCHC 31.3 L RDW Std Deviation 46.9 H RDW Coeff of Hakan 13.7 Plt Count 320 MPV 10.6 Immature Gran % (Auto) 0.900 Neut % (Auto) 89.7 H Lymph % (Auto) 4.9 L [place] % (Auto) 4.4 Eos % (Auto) 0.0 Baso % (Auto) 0.1 Absolute Neuts (auto) 13.6 H Absolute Lymphs (auto) 0.74 L Nucleated RBC % 0 D-Dimer Quant (PE/DVT) Specimen Type Sample Site pH Bicarbonate Actual Total CO2 Base Excess O2 Saturation O2 % ABG pCO2 ABG pO2 Stone Test O2 Delivery Device POC PEEP Sodium 135 L Potassium 4.3 Chloride 104 Carbon Dioxide 22.0 Anion Gap 9 BUN 49 H Creatinine 2.08 H Estim Creat Clear Calc 25.16 Est GFR (MDRD) Af Amer 39 L Est GFR (MDRD) Non-Af 33 L BUN/Creatinine Ratio 23.6 H Glucose 201 H Lactic Acid Calcium 9.1 Total Bilirubin 0.30 AST 32 ALT 29 Alkaline Phosphatase 64 Troponin I C-React Prot Ext Range Total Protein 7.8 Albumin 2.3 L Globulin 5.5 H Albumin/Globulin Ratio 0.4 L Procalcitonin COVID-19 (CAITLIN) POC Glucose 249 H Blood Type Antibody Screen Clinical Impression(s) from Imaging Studies Chest X-Ray 04/19/20 06:40 IMPRESSION: Degenerative changes, as described above. Ill-defined subpleural groundglass opacities are seen more prominent in the lung bases , may represent atypical pneumonia or viral pneumonia (COVID-19 ?). Electronically Signed: Adonay Sujey, at 7:22 EDT Tel , Service support , Medical Necessity - Tobacco Use Smoking Status: Never smoker Tobacco Use: Non-smoker Assessment/Plan All Active Problems TIFFANI (acute kidney injury) (Acute) Acute respiratory failure with hypoxia (Acute) Sepsis (Acute) COVID-19 (Acute) Shortness of breath (Acute) Weakness (Acute) Nonproductive cough (Acute) Pneumonia due to COVID-19 virus (Acute) RECOMMENDATIONS: 1. Continue Remdesivir, steroids and anticoagulation 2. Continue empiric antibiotics pending culture results 3. Potential BiPAP rescue later today 4. Wean oxygen as tolerated 5. Lasix challenge 6. Confirmed DNR Comfort Care arrest without intubation 7. Local care for lower extremity rashes IMPRESSIONS: 1. Acute hypoxic respiratory failure secondary to COVID-19 Unclear etiology at this time. Patient does have a significant leukocytosis with left shift. Patient will be placed on empiric antibiotics pending culture results. Given patient's marginal respiratory status, high oxygen requirements and CODE STATUS, patient has agreed to Remdesivir, steroids, anticoagulation and convalescent serum. Patient did receive convalescent serum overnight. Patient remains on other therapy for COVID-19. Patient would be at risk for secondary bacterial infection. Continue antibiotics for now pending culture results. Patient is receiving a significant IV fluid challenge, so we will give Lasix therapy to help with oxygenation. Patient may benefit from transition from Erb O to BiPAP therapy 2. Acute on chronic kidney disease stage III Clinical suspicion for prerenal etiology secondary to hypoxia and increased insensible losses. Patient did receive some fluid in the ER. Patient has some rales on exam and it is unclear if this is secondary to COVID-19 versus fluid overload. Will treat patient with fluid boluses as necessary instead of IV fluids continuously for urine output to avoid overload. Patient's Cozaar will be discontinued until renal function stabilizes. No indication for renal replacement therapy at this time. 3. Diabetes mellitus type 2 Patient has been placed on Decadron secondary to COVID-19. Will need to follow blood sugars very closely. Blood sugars appear to be marginally controlled on current regimen 4. Obesity/advanced age/hyperlipidemia/hypothyroidism Complicates care, management, recovery and prognosis. Okay to continue with baseline medications except for Cozaar secondary to acute kidney injury. TIME: 35 minutes critical care time spent addressing patient's acute hypoxic respiratory failure, acute kidney injury, diabetes mellitus, COVID-19, review of all data and collaboration with care team (7 AM to 8 AM) [phone]: [id number] Critical care first hour
[2020-04-20] MEDS: Insulin Lispro 100 UNIT/ML INSULN.PEN SC ×4 (08:25→21:17)
[2020-04-20] MEDS: Furosemide 40 MG/4 ML Vial IV (08:26)
[2020-04-20 09:00] LABS: Bedside Glucose 231 mg/dL (70-110)
[2020-04-20] MEDS: Atorvastatin Calcium 10 MG Tablet PO (10:10)
[2020-04-20] MEDS: Levothyroxine 125 MCG Tablet PO (10:10)
[2020-04-20] MEDS: APIXABAN 2.5 MG TABLET PO ×2 (10:10→21:19)
[2020-04-20] MEDS: dexAMETHasone 10 MG/ML Vial 6 MG IV (10:11)
[2020-04-20] MEDS: Nystatin Powder 15gm Bottle 1 APPLIC TOPICAL ×2 (10:47→21:30)
--- NOTE | 2020-04-20 12:10 | PCM.NTREPORT ---
Nutrition Therapy Report - History Nutrition Services has been consulted to:: Manage nutrient details of diet order Current diet / nutrition support order:: 1800 calorie consistent CHO - Anthropometric Measurements Height:: 5 ft 7 in Weight:: 110.178 kg Body Mass Index (BMI):: 38.0 - Relevant Labs Relevant Labs:: WBC 15.2 K/mm3 (4.4-11.0) H 04/20/20 04:00 RBC 3.41 M/mm3 (4.6-6.2) L 04/20/20 04:00 Hgb 9.9 g/dL (13.0-16.5) L 04/20/20 04:00 Hct 31.6 % (40-54) L 04/20/20 04:00 MCHC 31.3 g/dL (32-36) L 04/20/20 04:00 RDW Std Deviation 46.9 fl (35.1-43.9) H 04/20/20 04:00 Immature Gran % (Auto) 1.000 % (0.0-0.9) H 04/19/20 06:08 Neut % (Auto) 89.7 % (47-70) H 04/20/20 04:00 Lymph % (Auto) 4.9 % (19-41) L 04/20/20 04:00 Absolute Neuts (auto) 13.6 X10^3/uL (2.0-7.7) H 04/20/20 04:00 Absolute Lymphs (auto) 0.74 X10^3/uL (0.83-4.51) L 04/20/20 04:00 D-Dimer Quant (PE/DVT) 2.78 FEU/ug/m (0.27-0.49) H* 04/19/20 06:08 Sodium 135 mmol/L (136-145) L 04/20/20 04:00 BUN 49 mg/dL (7-18) H 04/20/20 04:00 Creatinine 2.08 mg/dL (0.70-1.30) H 04/20/20 04:00 Est GFR (MDRD) Af Amer 39 mL/min (>60) L 04/20/20 04:00 Est GFR (MDRD) Non-Af 33 mL/min (>60) L 04/20/20 04:00 BUN/Creatinine Ratio 23.6 RATIO (10-20) H 04/20/20 04:00 Glucose 201 mg/dL (74-106) H 04/20/20 04:00 Calcium 8.4 mg/dL (8.5-10.1) L 04/19/20 06:08 C-React Prot Ext Range 251.00 mg/L (0.0-3.0) H 04/19/20 12:30 Albumin 2.3 g/dL (3.2-5.0) L 04/20/20 04:00 Globulin 5.5 g/dL (2.2-4.2) H 04/20/20 04:00 Albumin/Globulin Ratio 0.4 RATIO (0.9-2.4) L 04/20/20 04:00 Procalcitonin 1.43 ng/mL (0.00-0.09) H 04/19/20 12:30 - Assessment Food / Nutrition-Related History:: Able to speak w/ pt via room phone this date. Reports good appetite/intake this AM, but wants to take it easy and not eat too much. States his appetite/intake was poor at home for 4-5 days d/t acute illness. Reports wt loss w/ acute illness, UBW 250# and CBW 242.9#-7.1#/2.8% wt loss x 1 week, significant for malnutrition. Currently w/ bilat pedal 1+ pitting edema. Per ICU rounds, given lasix this AM so may see additional wt loss. - Nutrition Diagnosis Problem / Etiology / Signs & Symptoms (PES):: Pt w/ severe, acute malnutrition related to inadequate energy intake w/ COVID-19 as evidenced by estimated PO intake meeting less than 50% of estimated needs for 5 days, wt loss of 7.1#/2.8% x 1 week. Evidence of Malnutrition Exists:: Yes Severe PCM:: Acute Illness - Nutrition Intervention Nutrition Prescription:: [id number] calories, 80-90 g protein - Food / Nutrient Delivery Interventions Summary of nutrition intervention:: Pt feels his appetite/intake is much improved, is worried about eating too much w/ his diabetes and is OK w/ current diet as ordered. Nutrition support ordered as / adjusted to:: will continue 1800 calorie/consistent CHO diet; consider liberalizing to regular if PO intake at meals declines - MNT Monitoring Further MNT monitoring and evaluation required?: Yes MNT Follow-up in:: 3-5 days
[2020-04-20 12:56] LABS: Bedside Glucose 293 mg/dL (70-110)
[2020-04-20] MEDS: Ipratropium/Albuterol Sulfate 3 ML AMPUL.NEB INHALATION ×2 (13:24→19:45)
--- NOTE | 2020-04-20 13:31 | CPS ---
changed the water bag on airvo at this time.
--- NOTE | 2020-04-20 15:18 | PCM.PROGNOTE ---
Patient Problems: Active and Suspected Problems TIFFANI (acute kidney injury) (Acute) Acute respiratory failure with hypoxia (Acute) Sepsis (Acute) COVID-19 (Acute) Shortness of breath (Acute) Weakness (Acute) Nonproductive cough (Acute) Pneumonia due to COVID-19 virus (Acute) Subjective: Patient was seen and examined today, he has no complaints of any fevers or chills, he is on Airvo at the present time. Patient's white blood cell count today was 15.2, his creatinine is 2.08. - Physical Exam Vitals/I&O's: Vital Signs Temp Pulse Resp BP Pulse Ox 99.2 F H 74 38 H 111/58 L 86 04/20/20 15:00 04/20/20 15:00 04/20/20 15:00 04/20/20 15:00 04/20/20 14:00 Oxygen Flow Rate (L/min) 60 Oxygen Delivery Method Airvo Weight: 110.178 kg Body Mass Index (BMI) 38.0 Intake and Output for Last 24 Hours 04/18/20 04/19/20 04/20/20 23:59 23:59 23:59 Intake Total 2100.83 / 2160.83 1410 / 1410 Output Total 825 / 1075 1400 / 1400 Balance 1275.83 / 1085.83 General: Alert, Oriented x3, Cooperative, No apparent distress, Well developed, Well nourished HEENT: Atraumatic, PERRLA, EOMI, Normocephalic Oral: Moist Mucosa Neck: Supple, No JVD, Trachea Midline, Thyroid Normal Size and Texture Lungs: Clear to auscultation, Normal air movement, No rhonchi, No wheeze, No rales Cardiovascular: Regular rate, Regular Rhythm, Normal S1, Normal S2, No murmurs, PMI Normal, No rub noted Abdomen: Bowel Sounds Present, Soft, Non Tender, Non-Distended, No hernias noted Extremities: No clubbing, No cyanosis, No edema, Capillary Refill Less than 3 Seconds Skin: No rashes, No breakdown Musculoskeletal: No Tenderness to Palpation of Joints or Extremities Neurological: Cranial nerves II-XII grossly intact, Neuro grossly intact, Sensory exam intact to light touch and pain, Coordination normal Psych/Mental Status: Normal Affect, Appropriate, Alert and oriented to time, place, person, mood and affect Laboratory Results 04/19/20 12:30: Blood Type A POSITIVE, Antibody Screen NEGATIVE 04/19/20 20:25: POC Glucose 249 H 04/20/20 04:00: WBC 15.2 H, RBC 3.41 L, Hgb 9.9 L, Hct 31.6 L, MCV 92.7, MCH 29.0, MCHC 31.3 L, RDW Std Deviation 46.9 H, RDW Coeff of Hakan 13.7, Plt Count 320, MPV 10.6, Immature Gran % (Auto) 0.900, Neut % (Auto) 89.7 H, Lymph % (Auto) 4.9 L, Dillon % (Auto) 4.4, Eos % (Auto) 0.0, Baso % (Auto) 0.1, Absolute Neuts (auto) 13.6 H, Absolute Lymphs (auto) 0.74 L, Nucleated RBC % 0 04/20/20 04:00: Sodium 135 L, Potassium 4.3, Chloride 104, Carbon Dioxide 22.0, Anion Gap 9, BUN 49 H, Creatinine 2.08 H, Estim Creat Clear Calc 25.16, Est GFR (MDRD) Af Amer 39 L, Est GFR (MDRD) Non-Af 33 L, BUN/Creatinine Ratio 23.6 H, Glucose 201 H, Calcium 9.1, Total Bilirubin 0.30, AST 32, ALT 29, Alkaline Phosphatase 64, Total Protein 7.8, Albumin 2.3 L, Globulin 5.5 H, Albumin/Globulin Ratio 0.4 L 04/20/20 08:20: POC Glucose 231 H 04/20/20 12:41: POC Glucose 293 H Current Medications Acetaminophen (Acetaminophen 325 Mg Tablet) 650 mg PO Q6H PRN PRN PRN Reason: Pain Score 1-10/Temp > 100.7 F Albuterol Sulfate (Albuterol Sulfate 8 Gm Inhaler (60 Puffs)) 2 puff INHALATION Q2H PRN PRN PRN Reason: SOB/Wheezing Albuterol/Ipratropium (Ipratropium/Albuterol Sulfate 3 Ml Ampul.Neb) 3 ml INHALATION Q6HWA.RT ZENA Last Admin: 04/20/20 13:24 Dose: 3 ml Documented by: Apixaban (Apixaban 2.5 Mg Tablet) 2.5 mg PO BID ZENA Last Admin: 04/20/20 10:10 Dose: 2.5 mg Documented by: Atorvastatin Calcium (Atorvastatin Calcium 10 Mg Tablet) 10 mg PO DAILY [facility] Last Admin: 04/20/20 10:10 Dose: 10 mg Documented by: Dexamethasone Sodium Phosphate (Dexamethasone 10 Mg/Ml Vial) 6 mg IV DAILY [facility] Last Admin: 04/20/20 10:11 Dose: 6 mg Documented by: Dextrose (Dextrose 50%-Water 25 Gm/50 Ml Disp.Syrin) 0 gm IV X1 PRN; Protocol PRN Reason: Hypoglycemia Famotidine (Famotidine 20 Mg Tablet) 20 mg PO QHS [facility] Last Admin: 04/19/20 20:30 Dose: 20 mg Documented by: Glucagon (Glucagon 1 Mg/Ml Syringe) 1 mg IM .X1 PRN PRN Reason: Hypoglycemia Sodium Chloride () 250 mls @ 15 mls/hr IV .[id number] PRN PRN Reason: Saline Flush Sodium Chloride () 250 mls @ 15 mls/hr IV .[id number] PRN PRN Reason: Additional IVPB Infusion Remdesivir (Investigational) (100 mg/ Sodium Chloride) 250 mls @ 125 mls/hr IV DAILY [facility]; Protocol Stop: 04/23/20 11:59 Last Infusion: 04/20/20 14:23 Dose: Infused Documented by: Piperacillin Sod/Tazobactam (Sod 3.375 gm/ Sodium Chloride) 50 mls @ 12.5 mls/hr IV Q8 [facility] Last Admin: 04/20/20 14:36 Dose: 12.5 mls/hr Documented by: Insulin Human Lispro (Insulin Lispro 100 Unit/Ml Insuln.Pen) 0 unit SC ACHS [facility]; Protocol Last Admin: 04/20/20 12:44 Dose: 9 u Documented by: Levothyroxine Sodium (Levothyroxine 125 Mcg Tablet) 125 mcg PO DAILY [facility] Last Admin: 04/20/20 10:10 Dose: 125 mcg Documented by: Nystatin (Nystatin Powder 15gm Bottle) 1 applic TOPICAL BID [facility]; Protocol Last Admin: 04/20/20 10:47 Dose: 1 applic Documented by: Sodium Chloride (0.9% Saline Lock 10 Ml Syringe) 10 - 40 ml IV UD PRN PRN Reason: SALINE FLUSH Medical Necessity - Tobacco Use Smoking Status: Never smoker Tobacco Use: Non-smoker Assessment/Plan All Active Problems TIFFANI (acute kidney injury) (Acute) Acute respiratory failure with hypoxia (Acute) Sepsis (Acute) COVID-19 (Acute) Shortness of breath (Acute) Weakness (Acute) Nonproductive cough (Acute) Pneumonia due to COVID-19 virus (Acute) #1 acute COVID-19 infection with bilateral pneumonia-continue present treatment per critical care at this time #2 acute hypoxic respiratory failure secondary to COVID-19 infection with bilateral pneumonia-patient is currently on high flow oxygen and is maintaining his pulse ox #3 acute bilateral community-acquired pneumonia-probably secondary to COVID-19 infection, bacterial infection is not excluded at this time, patient will be maintained on Zosyn for now #4 acute kidney injury a backdrop of chronic kidney disease stage III (secondary to type 2 diabetes)-patient's baseline creatinine is 1.6-1.7, patient's creatinine is improved today #5 type 2 diabetes-blood sugars will be monitored, insulin will be given per protocol #6 essential hypertension-patient will remain on his present blood pressure medications #7 hyperlipidemia #8 hypothyroidism #9 elevated [id number] unknown at this time, patient will continue Eliquis at 2.5 mg twice daily, I do not feel he needs a CTA of his chest. Inpatient E&M: 52935 Subs Hosp L2
--- NOTE | 2020-04-20 18:59 | NURSING ---
CHARTING BY Violet SUAREZ RN REVIEWED AND AGREE WITH ASSESSMENT FINDINGS
[2020-04-20] MEDS: Famotidine 20 MG Tablet PO (21:19)
[2020-04-20] MEDS: Haloperidol Lactate 5 MG/ML Vial IV ×2 (21:25→23:45)
[2020-04-20] MEDS: 0.9% Saline Lock 10 ML Syringe IV (21:26)
[2020-04-21] VITALS (34 sets, daily range): BP systolic 104–156; BP diastolic 43–90; PULSE 53–96; RESP 12–40; TEMP 36.1–36.4; O2SAT 87–97
[2020-04-21 00:41] LABS: Bedside Glucose 420 mg/dL (70-110)
[2020-04-21] MEDS: morphine (oral solution) 10MG/0.5ML Syringe 10 MG SL/PO (00:45)
[2020-04-21 04:09] LABS: Absolute Lymphocyte Count 0.74 X10^3/uL (0.83-4.51); Absolute Neutrophil Count 14.6 X10^3/uL (2.0-7.7); Basophil# 0.02 X10^3/uL; Basophil% 0.1 % (0-1); Hematocrit 30.3 % (40-54); Hemoglobin 9.9 g/dL (13.0-16.5); Lymphocyte # 0.74 X10^3/ul (4.0); Lymphocyte % 4.5 % (19-41); Mean Corp Hgb Conc 32.7 g/dL (32-36); Mean Corpuscular Hgb 29.4 pg (27.0-32.0); Mean Corpuscular Volume 89.9 fL (80-94); Mean Platelet Vol. 10.8 fl (6.2-12.0); Monocyte# 0.75 X10^3/uL; Monocyte% 4.6 % (0-10); NRBC Flagged by Analyzer 0 % (0-5); Neutrophil # 14.61 X10^3/uL (2.7-7.7); Neutrophil % 89.3 % (47-70); Platelet Count 382 K/mm3 (150-450); RBC Distribution Width CV 13.9 % (11.6-14.6); RBC Distribution Width SD 45.6 fl (35.1-43.9); Red Blood Count 3.37 M/mm3 (4.6-6.2); White Blood Count 16.4 K/mm3 (4.4-11.0)
[2020-04-21 04:24] LABS: Anion Gap 9 (5-15); BUN 62 mg/dL (7-18); BUN/Creat Ratio 27.4 RATIO (10-20); Chloride 104 mmol/L (98-107); Creatinine, Serum 2.26 mg/dL (0.70-1.30); EST Glomerular Filtration Rate 30 mL/min (>60); Est Glom Filt Rate - Afr Amer 36 mL/min (>60); Estimated Creatinine Clearance 23.15 ml/min; Glucose 213 mg/dL (74-106); Sodium Level 135 mmol/L (136-145)
--- NOTE | 2020-04-21 06:21 | PCM.PN.INT ---
Subjective: The patient was seen and examined at the bedside this morning. Events from the last 24 hours have been reviewed. The patient is currently afebrile, hemodynamically stable and maintaining appropriate oxygen saturations on BiPAP with an FiO2 requirement of 85%. The patient remains on scheduled bronchodilator therapy, systemic anticoagulation with Eliquis, Decadron and remdesivir. He has already received convalescent plasma. Objective: The patient's most recent lab work, culture data and imaging studies have all been personally reviewed. Coronavirus PCR was positive on April 19. Blood cultures have shown no growth to date. General: Alert, Cooperative, - - Tolerating BiPAP currently HEENT: Atraumatic, Normocephalic Oral: No Gingival or Mucosal Lesions/ Ulcerations Neck: Supple, No Nodes, Trachea Midline Lungs: Diminished, Rales Cardiovascular: Regular rate, Regular Rhythm Abdomen: Bowel Sounds Present, Soft, Non Tender, Obese Extremities: No clubbing, No cyanosis, Edema Skin: No breakdown Musculoskeletal: No Tenderness to Palpation of Joints or Extremities Lymphatic: No Cervical, Supraclavicular, or Inguinal Adenopathy Neurological: Cranial nerves II-XII grossly intact, Neuro grossly intact Psych/Mental Status: Flat Affect Vital Signs Temp Pulse Resp BP Pulse Ox 97.0 F L 67 30 H 125/60 H 91 04/21/20 06:00 04/21/20 06:00 04/21/20 06:00 04/21/20 06:00 04/21/20 06:00 Oxygen Flow Rate (L/min) 60 Oxygen Delivery Method Bi-pap Weight: 242 lb 8 oz Body Mass Index (BMI) 38.0 Intake and Output for Last 24 Hours 04/19/20 04/20/20 04/21/20 23:59 23:59 23:59 Intake Total 2100.83 / 2160.83 1745 / 1985 350 / 350 Output Total 825 / 1075 2720 / 2875 555 / 555 Balance 1275.83 / 1085.83 -975 / -890 -205 / -205 Labs (Last 48 Hours) 04/19/20 04/19/20 04/19/20 06:08 06:08 06:08 WBC 13.6 H RBC 3.47 L Hgb 10.4 L Hct 32.4 L MCV 93.4 MCH 30.0 MCHC 32.1 RDW Std Deviation 47.3 H RDW Coeff of Hakan 13.8 Plt Count 308 MPV 10.7 Immature Gran % (Auto) 1.000 H Neut % (Auto) 87.2 H Lymph % (Auto) 6.1 L [place] % (Auto) 4.9 Eos % (Auto) 0.7 Baso % (Auto) 0.1 Absolute Neuts (auto) 11.9 H Absolute Lymphs (auto) 0.83 Nucleated RBC % 0 D-Dimer Quant (PE/DVT) Specimen Type Sample Site pH Bicarbonate Actual Total CO2 Base Excess O2 Saturation O2 % ABG pCO2 ABG pO2 Stone Test O2 Delivery Device POC PEEP Sodium 131 L Potassium 4.2 Chloride 101 Carbon Dioxide 21.0 Anion Gap 9 BUN 50 H Creatinine 2.51 H Estim Creat Clear Calc 20.85 Est GFR (MDRD) Af Amer 32 L Est GFR (MDRD) Non-Af 26 L BUN/Creatinine Ratio 19.9 Glucose 205 H Lactic Acid 1.4 Calcium 8.4 L Total Bilirubin 0.40 AST 30 ALT 25 Alkaline Phosphatase 58 Troponin I < 0.015 C-React Prot Ext Range Total Protein 7.8 Albumin 2.4 L Globulin 5.4 H Albumin/Globulin Ratio 0.4 L Procalcitonin COVID-19 (CAITLIN) POC Glucose Blood Type Antibody Screen 04/19/20 04/19/20 04/19/20 06:08 06:10 11:41 WBC RBC Hgb Hct MCV MCH MCHC RDW Std Deviation RDW Coeff of Hakan Plt Count MPV Immature Gran % (Auto) Neut % (Auto) Lymph % (Auto) [place]ne % (Auto) Eos % (Auto) Baso % (Auto) Absolute Neuts (auto) Absolute Lymphs (auto) Nucleated RBC % D-Dimer Quant (PE/DVT) 2.78 H* Specimen Type ART Sample Site R Radial pH 7.36 Bicarbonate Actual 18.7 L Total CO2 20 Base Excess -7 L O2 Saturation 91 L O2 % 65 ABG pCO2 33.3 L ABG pO2 64 L Stone Test Positive O2 Delivery Device BiPAP POC PEEP 7 Sodium Potassium Chloride Carbon Dioxide Anion Gap BUN Creatinine Estim Creat Clear Calc Est GFR (MDRD) Af Amer Est GFR (MDRD) Non-Af BUN/Creatinine Ratio Glucose Lactic Acid Calcium Total Bilirubin AST ALT Alkaline Phosphatase Troponin I C-React Prot Ext Range Total Protein Albumin Globulin Albumin/Globulin Ratio Procalcitonin COVID-19 (CAITLIN) Detected POC Glucose Blood Type Antibody Screen 04/19/20 04/19/20 04/19/20 12:30 12:30 12:30 WBC RBC Hgb Hct MCV MCH MCHC RDW Std Deviation RDW Coeff of Hakan Plt Count MPV Immature Gran % (Auto) Neut % (Auto) Lymph % (Auto) [place] % (Auto) Eos % (Auto) Baso % (Auto) Absolute Neuts (auto) Absolute Lymphs (auto) Nucleated RBC % D-Dimer Quant (PE/DVT) Specimen Type Sample Site pH Bicarbonate Actual Total CO2 Base Excess O2 Saturation O2 % ABG pCO2 ABG pO2 Stone Test O2 Delivery Device POC PEEP Sodium Potassium Chloride Carbon Dioxide Anion Gap BUN Creatinine Estim Creat Clear Calc Est GFR (MDRD) Af Amer Est GFR (MDRD) Non-Af BUN/Creatinine Ratio Glucose Lactic Acid Calcium Total Bilirubin AST ALT Alkaline Phosphatase 55 Troponin I C-React Prot Ext Range 251.00 H Total Protein Albumin Globulin Albumin/Globulin Ratio Procalcitonin 1.43 H COVID-19 (CAITLIN) POC Glucose Blood Type A POSITIVE Antibody Screen NEGATIVE 04/19/20 04/20/20 04/20/20 20:25 04:00 04:00 WBC 15.2 H RBC 3.41 L Hgb 9.9 L Hct 31.6 L MCV 92.7 MCH 29.0 MCHC 31.3 L RDW Std Deviation 46.9 H RDW Coeff of Hakan 13.7 Plt Count 320 MPV 10.6 Immature Gran % (Auto) 0.900 Neut % (Auto) 89.7 H Lymph % (Auto) 4.9 L [place] % (Auto) 4.4 Eos % (Auto) 0.0 Baso % (Auto) 0.1 Absolute Neuts (auto) 13.6 H Absolute Lymphs (auto) 0.74 L Nucleated RBC % 0 D-Dimer Quant (PE/DVT) Specimen Type Sample Site pH Bicarbonate Actual Total CO2 Base Excess O2 Saturation O2 % ABG pCO2 ABG pO2 Stone Test O2 Delivery Device POC PEEP Sodium 135 L Potassium 4.3 Chloride 104 Carbon Dioxide 22.0 Anion Gap 9 BUN 49 H Creatinine 2.08 H Estim Creat Clear Calc 25.16 Est GFR (MDRD) Af Amer 39 L Est GFR (MDRD) Non-Af 33 L BUN/Creatinine Ratio 23.6 H Glucose 201 H Lactic Acid Calcium 9.1 Total Bilirubin 0.30 AST 32 ALT 29 Alkaline Phosphatase 64 Troponin I C-React Prot Ext Range Total Protein 7.8 Albumin 2.3 L Globulin 5.5 H Albumin/Globulin Ratio 0.4 L Procalcitonin COVID-19 (CAITLIN) POC Glucose 249 H Blood Type Antibody Screen 04/20/20 04/20/20 04/20/20 08:20 12:41 21:14 WBC RBC Hgb Hct MCV MCH MCHC RDW Std Deviation RDW Coeff of Hakan Plt Count MPV Immature Gran % (Auto) Neut % (Auto) Lymph % (Auto) [place] % (Auto) Eos % (Auto) Baso % (Auto) Absolute Neuts (auto) Absolute Lymphs (auto) Nucleated RBC % D-Dimer Quant (PE/DVT) Specimen Type Sample Site pH Bicarbonate Actual Total CO2 Base Excess O2 Saturation O2 % ABG pCO2 ABG pO2 Stone Test O2 Delivery Device POC PEEP Sodium Potassium Chloride Carbon Dioxide Anion Gap BUN Creatinine Estim Creat Clear Calc Est GFR (MDRD) Af Amer Est GFR (MDRD) Non-Af BUN/Creatinine Ratio Glucose Lactic Acid Calcium Total Bilirubin AST ALT Alkaline Phosphatase Troponin I C-React Prot Ext Range Total Protein Albumin Globulin Albumin/Globulin Ratio Procalcitonin COVID-19 (CAITLIN) POC Glucose 231 H 293 H 420 H Blood Type Antibody Screen 04/21/20 04/21/20 04:00 04:00 WBC 16.4 H RBC 3.37 L Hgb 9.9 L Hct 30.3 L MCV 89.9 MCH 29.4 MCHC 32.7 RDW Std Deviation 45.6 H RDW Coeff of Hakan 13.9 Plt Count 382 MPV 10.8 Immature Gran % (Auto) 1.500 H Neut % (Auto) 89.3 H Lymph % (Auto) 4.5 L [place] % (Auto) 4.6 Eos % (Auto) 0.0 Baso % (Auto) 0.1 Absolute Neuts (auto) 14.6 H Absolute Lymphs (auto) 0.74 L Nucleated RBC % 0 D-Dimer Quant (PE/DVT) Specimen Type Sample Site pH Bicarbonate Actual Total CO2 Base Excess O2 Saturation O2 % ABG pCO2 ABG pO2 Stone Test O2 Delivery Device POC PEEP Sodium 135 L Potassium 4.0 Chloride 104 Carbon Dioxide 22.0 Anion Gap 9 BUN 62 H Creatinine 2.26 H Estim Creat Clear Calc 23.15 Est GFR (MDRD) Af Amer 36 L Est GFR (MDRD) Non-Af 30 L BUN/Creatinine Ratio 27.4 H Glucose 213 H Lactic Acid Calcium 9.0 Total Bilirubin AST ALT Alkaline Phosphatase Troponin I C-React Prot Ext Range Total Protein Albumin Globulin Albumin/Globulin Ratio Procalcitonin COVID-19 (CAITLIN) POC Glucose Blood Type Antibody Screen Clinical Impression(s) from Imaging Studies Chest X-Ray 04/19/20 06:40 IMPRESSION: Degenerative changes, as described above. Ill-defined subpleural groundglass opacities are seen more prominent in the lung bases , may represent atypical pneumonia or viral pneumonia (COVID-19 ?). Electronically Signed: Adonay Rm, at 7:22 EDT Tel , Service support , Chest X-Ray 04/20/20 05:37 IMPRESSION: 1. Multilobar infiltrates, partial clearing of left lung base. Typical/atypical pneumonia and pulmonary edema should be considered. Electronically Signed: Aristeo Murray MD ([place]) at 9:03 EDT , Service support , Medical Necessity - Tobacco Use Smoking Status: Never smoker Tobacco Use: Non-smoker Assessment/Plan All Active Problems TIFFANI (acute kidney injury) (Acute) Acute respiratory failure with hypoxia (Acute) Sepsis (Acute) COVID-19 (Acute) Shortness of breath (Acute) Weakness (Acute) Nonproductive cough (Acute) Pneumonia due to COVID-19 virus (Acute) RECOMMENDATIONS: 1. Transition patient from BiPAP to Airvo heated high flow for comfort. 2. If oxygen saturations remain stable, diet can be liberalized for lunch and dinner. 3. Wean FiO2 to maintain oxygen saturations at or above 90%. 4. Continue bronchodilator therapy. 5. Continue systemic anticoagulation with Eliquis. 6. Continue remdesivir and Decadron to complete treatment courses. IMPRESSIONS: 1. Acute hypoxic respiratory failure secondary to COVID-19 Plan to continue current supportive measures. The patient will be continued on bronchodilator therapy, systemic anticoagulation with Eliquis, Decadron and remdesivir. He has already received convalescent plasma. The patient will be transitioned from BiPAP this morning over to Airvo heated high flow for patient comfort. Agree with continuing empiric antimicrobials for now, given the patient's tenuous respiratory status. Continue to wean FiO2 to maintain oxygen saturations at or above 90%. 2. Acute on chronic kidney disease stage III Clinical suspicion for prerenal etiology secondary to hypoxia and increased insensible losses. We will continue to monitor urine output. No current indication for renal replacement therapy. 3. Diabetes mellitus type 2 Continue Lantus and sliding scale insulin regimen, especially in light of steroid-induced hyperglycemia. 4. Obesity/advanced age/hyperlipidemia/hypothyroidism Complicates care, management, recovery and prognosis. Okay to continue with baseline medications except for Cozaar secondary to acute kidney injury. Physical therapy evaluation once medically stabilized. TIME: 35 minutes of critical care time was spent addressing the patient's acute hypoxemic respiratory failure secondary to Covid pneumonia, acute on chronic kidney disease, diabetes mellitus, review of all data and collaboration with the care team. [id number]) [id number] Critical care first hour
[2020-04-21] MEDS: Ipratropium/Albuterol Sulfate 3 ML AMPUL.NEB INHALATION ×3 (07:34→19:16)
--- NOTE | 2020-04-21 07:36 | PN_ITS ---
Patient Problems: Active and Suspected Problems TIFFANI (acute kidney injury) (Acute) Acute respiratory failure with hypoxia (Acute) Sepsis (Acute) COVID-19 (Acute) Shortness of breath (Acute) Weakness (Acute) Nonproductive cough (Acute) Pneumonia due to COVID-19 virus (Acute) Reason for Visit: Acute hypoxic respiratory failure COVID-19 pneumonia Subjective: Patient is an 84-year-old gentleman with multiple comorbidities including diabetes mellitus type 2, hypothyroidism, dyslipidemia, hypertension who presented with progressive shortness of breath. An assessment of acute hypoxic respiratory failure was made. Imaging studies obtained on admission demonstrated Ill-defined subpleural groundglass opacities are seen more prominent in the lung bases. Subsequent COVID-19 assay came back positive admitted to the intensive care unit for subsequent management Objective: GENERAL: On BiPAP HEENT: Atraumatic; EYES; Anicteric, Normal Conjunctiva NECK; supple, normal thyroid, RESPIRATORY: Diminished to auscultation CARDIOVASCULAR: Regular S1 S2, GI: soft, normoactive bowel sounds, : No Renal angle tenderness; EXTREMITIES: No edema, no clubbing, MUSCULOSKELETAL: no muscle waisting NEURO: Awake; no lateralizing signs. SKIN: No Rash PSYCH; Flat affect Vitals/I&O's: Vital Signs Temp Pulse Resp BP Pulse Ox 97.0 F L 67 30 H 125/60 H 91 04/21/20 06:00 04/21/20 06:00 04/21/20 06:00 04/21/20 06:00 04/21/20 06:00 Oxygen Flow Rate (L/min) 60 Oxygen Delivery Method Bi-pap Weight: 109.996 kg Body Mass Index (BMI) 38.0 Intake and Output for Last 24 Hours 04/19/20 04/20/20 04/21/20 23:59 23:59 23:59 Intake Total 2100.83 / 2160.83 1745 / 1985 350 / 350 Output Total 825 / 1075 2720 / 2875 555 / 555 Balance 1275.83 / 1085.83 -975 / -890 -205 / -205 Laboratory Results 04/20/20 08:20: POC Glucose 231 H 04/20/20 12:41: POC Glucose 293 H 04/20/20 21:14: POC Glucose 420 H 04/21/20 04:00: WBC 16.4 H, RBC 3.37 L, Hgb 9.9 L, Hct 30.3 L, MCV 89.9, MCH 29.4, MCHC 32.7, RDW Std Deviation 45.6 H, RDW Coeff of Hakan 13.9, Plt Count 382, MPV 10.8, Immature Gran % (Auto) 1.500 H, Neut % (Auto) 89.3 H, Lymph % (Auto) 4.5 L, [place] % (Auto) 4.6, Eos % (Auto) 0.0, Baso % (Auto) 0.1, Absolute Neuts (auto) 14.6 H, Absolute Lymphs (auto) 0.74 L, Nucleated RBC % 0 04/21/20 04:00: Sodium 135 L, Potassium 4.0, Chloride 104, Carbon Dioxide 22.0, Anion Gap 9, BUN 62 H, Creatinine 2.26 H, Estim Creat Clear Calc 23.15, Est GFR (MDRD) Af Amer 36 L, Est GFR (MDRD) Non-Af 30 L, BUN/Creatinine Ratio 27.4 H, Glucose 213 H, Calcium 9.0 Current Medications Acetaminophen (Acetaminophen 325 Mg Tablet) 650 mg PO Q6H PRN PRN PRN Reason: Pain Score 1-10/Temp > 100.7 F Albuterol Sulfate (Albuterol Sulfate 8 Gm Inhaler (60 Puffs)) 2 puff INHALATION Q2H PRN PRN PRN Reason: SOB/Wheezing Albuterol/Ipratropium (Ipratropium/Albuterol Sulfate 3 Ml Ampul.Neb) 3 ml INHALATION Q6HWA.RT [facility] Last Admin: 04/21/20 07:34 Dose: 3 ml Documented by: Apixaban (Apixaban 2.5 Mg Tablet) 2.5 mg PO BID [facility] Last Admin: 04/20/20 21:19 Dose: 2.5 mg Documented by: Atorvastatin Calcium (Atorvastatin Calcium 10 Mg Tablet) 10 mg PO DAILY [facility] Last Admin: 04/20/20 10:10 Dose: 10 mg Documented by: Dexamethasone Sodium Phosphate (Dexamethasone 10 Mg/Ml Vial) 6 mg IV DAILY [facility] Last Admin: 04/20/20 10:11 Dose: 6 mg Documented by: Dextrose (Dextrose 50%-Water 25 Gm/50 Ml Disp.Syrin) 0 gm IV X1 PRN; Protocol PRN Reason: Hypoglycemia Famotidine (Famotidine 20 Mg Tablet) 20 mg PO QHS [facility] Last Admin: 04/20/20 21:19 Dose: 20 mg Documented by: Glucagon (Glucagon 1 Mg/Ml Syringe) 1 mg IM .X1 PRN PRN Reason: Hypoglycemia Haloperidol Lactate (Haloperidol Lactate 5 Mg/Ml Vial) 3 - 5 mg IV Q6H PRN PRN PRN Reason: ANXIETY/AGITATION Last Admin: 04/20/20 23:45 Dose: 2 mg Documented by: Sodium Chloride () 250 mls @ 15 mls/hr IV .[id number] PRN PRN Reason: Saline Flush Sodium Chloride () 250 mls @ 15 mls/hr IV .[id number] PRN PRN Reason: Additional IVPB Infusion Remdesivir (Investigational) (100 mg/ Sodium Chloride) 250 mls @ 125 mls/hr IV DAILY [facility]; Protocol Stop: 04/23/20 11:59 Last Infusion: 04/20/20 14:23 Dose: Infused Documented by: Piperacillin Sod/Tazobactam (Sod 3.375 gm/ Sodium Chloride) 50 mls @ 12.5 mls/hr IV Q8 [facility] Last Admin: 04/21/20 05:04 Dose: 12.5 mls/hr Documented by: Insulin Glargine (Insulin Glargine 100 Units/Ml Pen) 20 units SC BID [facility] Last Admin: 04/20/20 21:18 Dose: 20 u Documented by: Insulin Human Lispro (Insulin Lispro 100 Unit/Ml Insuln.Pen) 0 unit SC ACHS [facility]; Protocol Last Admin: 04/20/20 21:17 Dose: 16 u Documented by: Levothyroxine Sodium (Levothyroxine 125 Mcg Tablet) 125 mcg PO DAILY [facility] Last Admin: 04/20/20 10:10 Dose: 125 mcg Documented by: Morphine Sulfate (Morphine (Oral Solution) 10mg/0.5ml Syringe) 10 mg SL/PO Q2H PRN PRN PRN Reason: shortness of breath Last Admin: 04/21/20 00:45 Dose: 10 mg Documented by: Nystatin (Nystatin Powder 15gm Bottle) 1 applic TOPICAL BID [facility]; Protocol Last Admin: 04/20/20 21:30 Dose: 1 applic Documented by: Sodium Chloride (0.9% Saline Lock 10 Ml Syringe) 10 - 40 ml IV UD PRN PRN Reason: SALINE FLUSH Last Admin: 04/20/20 21:26 Dose: 40 ml Documented by: Sodium Chloride (0.9% Saline Lock 10 Ml Syringe) 10 - 40 ml IV UD PRN PRN Reason: SALINE FLUSH STROKE Vital Signs/Narrative: Vital Signs Temp Pulse Resp BP Pulse Ox 04/21/20 06:00 97.0 F L 67 30 H 125/60 H 91 04/21/20 05:00 97.0 F L 54 L 24 H 124/65 H 93 04/21/20 04:00 97.0 F L 67 33 H 128/56 H 89 Medical Necessity - Tobacco Use Smoking Status: Never smoker Tobacco Use: Non-smoker Assessment/Plan All Active Problems TIFFANI (acute kidney injury) (Acute) Acute respiratory failure with hypoxia (Acute) Sepsis (Acute) COVID-19 (Acute) Shortness of breath (Acute) Weakness (Acute) Nonproductive cough (Acute) Pneumonia due to COVID-19 virus (Acute) Patient is an 84-year-old gentleman with multiple comorbidities including diabetes mellitus type 2, hypothyroidism, dyslipidemia, hypertension who presented with progressive shortness of breath. An assessment of acute hypoxic respiratory failure was made. Imaging studies obtained on admission demonst rated Ill-defined subpleural groundglass opacities are seen more prominent in the lung bases. Subsequent COVID-19 assay came back positive admitted to the intensive care unit for subsequent management 1. Acute hypoxic respiratory failure ?Secondary to COVID-19 pneumonia. Admitted to the intensive care unit with consultation placed to pulmonary medicine. Patient placed on noninvasive ventilation BiPAP 2. Acute COVID-19 pneumonia ?Admitted to the intensive care unit managed noninvasive ventilation, supplemental oxygen, systemic steroid as well as remdesivir 3. Acute kidney injury ?Superimposed on chronic kidney disease. Monitoring electrolyte 4. Hypothyroidism - Patient is on levothyroxine home dose continued 5. Hypertension - Blood pressure controlled, home medications continued with dose adjustment as needed 6. Dyslipidemia -Patient is on statin therapy, continued at home dose 7. Diabetes mellitus type 2 ?With complications including diabetic nephropathy. On Accu-Cheks before meals and at bedtime with sliding scale coverage 8. Elevated D-dimer ?Secondary to patient underlying COVID-19 infection. Patient is currently on systemic anticoagulation ordered bilateral venous duplex to rule out lower extremity DVT. Plan is will be for patient to undergo VQ scan examination to rule out PE. The aim of this is to determine duration of treatment for patient's systemic anticoagulation. 10. DVT prophylaxis ?Systemic anticoagulation Advance planning; did discuss with the patient and family regarding advanced directives as well as CODE STATUS. Did explain the various scenarios involved ( FULL CODE, DNR CCA, DNR CCA with no intubation, and DNR CC and what each meant) patient elected to be DNR CCA no intubation. Order was placed. Time spent on discussion 18 minutes. Active Medications Acetaminophen (Acetaminophen 325 Mg Tablet) 650 mg PO Q6H PRN PRN PRN Reason: Pain Score 1-10/Temp > 100.7 F Albuterol Sulfate (Albuterol Sulfate 8 Gm Inhaler (60 Puffs)) 2 puff INHALATION Q2H PRN PRN PRN Reason: SOB/Wheezing Albuterol/Ipratropium (Ipratropium/Albuterol Sulfate 3 Ml Ampul.Neb) 3 ml INHALATION Q6HWA.RT [facility] Last Admin: 04/21/20 07:34 Dose: 3 ml Documented by: Apixaban (Apixaban 2.5 Mg Tablet) 2.5 mg PO BID [facility] Last Admin: 04/20/20 21:19 Dose: 2.5 mg Documented by: Atorvastatin Calcium (Atorvastatin Calcium 10 Mg Tablet) 10 mg PO DAILY [facility] Last Admin: 04/20/20 10:10 Dose: 10 mg Documented by: Dexamethasone Sodium Phosphate (Dexamethasone 10 Mg/Ml Vial) 6 mg IV DAILY [facility] Last Admin: 04/20/20 10:11 Dose: 6 mg Documented by: Dextrose (Dextrose 50%-Water 25 Gm/50 Ml Disp.Syrin) 0 gm IV X1 PRN; Protocol PRN Reason: Hypoglycemia Famotidine (Famotidine 20 Mg Tablet) 20 mg PO QHS [facility] Last Admin: 04/20/20 21:19 Dose: 20 mg Documented by: Glucagon (Glucagon 1 Mg/Ml Syringe) 1 mg IM .X1 PRN PRN Reason: Hypoglycemia Haloperidol Lactate (Haloperidol Lactate 5 Mg/Ml Vial) 3 - 5 mg IV Q6H PRN PRN PRN Reason: ANXIETY/AGITATION Last Admin: 04/20/20 23:45 Dose: 2 mg Documented by: Sodium Chloride () 250 mls @ 15 mls/hr IV .[id number] PRN PRN Reason: Saline Flush Sodium Chloride () 250 mls @ 15 mls/hr IV .[id number] PRN PRN Reason: Additional IVPB Infusion Remdesivir (Investigational) (100 mg/ Sodium Chloride) 250 mls @ 125 mls/hr IV DAILY [facility]; Protocol Stop: 04/23/20 11:59 Last Infusion: 04/20/20 14:23 Dose: Infused Documented by: Piperacillin Sod/Tazobactam (Sod 3.375 gm/ Sodium Chloride) 50 mls @ 12.5 mls/hr IV Q8 [facility] Last Admin: 04/21/20 05:04 Dose: 12.5 mls/hr Documented by: Insulin Glargine (Insulin Glargine 100 Units/Ml Pen) 20 units SC BID [facility] Last Admin: 04/20/20 21:18 Dose: 20 u Documented by: Insulin Human Lispro (Insulin Lispro 100 Unit/Ml Insuln.Pen) 0 unit SC ACHS [facility]; Protocol Last Admin: 04/20/20 21:17 Dose: 16 u Documented by: Levothyroxine Sodium (Levothyroxine 125 Mcg Tablet) 125 mcg PO DAILY [facility] Last Admin: 04/20/20 10:10 Dose: 125 mcg Documented by: Morphine Sulfate (Morphine (Oral Solution) 10mg/0.5ml Syringe) 10 mg SL/PO Q2H PRN PRN PRN Reason: shortness of breath Last Admin: 04/21/20 00:45 Dose: 10 mg Documented by: Nystatin (Nystatin Powder 15gm Bottle) 1 applic TOPICAL BID [facility]; Protocol Last Admin: 04/20/20 21:30 Dose: 1 applic Documented by: Sodium Chloride (0.9% Saline Lock 10 Ml Syringe) 10 - 40 ml IV UD PRN PRN Reason: SALINE FLUSH Last Admin: 04/20/20 21:26 Dose: 40 ml Documented by: Sodium Chloride (0.9% Saline Lock 10 Ml Syringe) 10 - 40 ml IV UD PRN PRN Reason: SALINE FLUSH Clinical Impression(s) from Imaging Studies Chest X-Ray 04/19/20 06:40 IMPRESSION: Degenerative changes, as described above. Ill-defined subpleural groundglass opacities are seen more prominent in the lung bases , may represent atypical pneumonia or viral pneumonia (COVID-19 ?). Electronically Signed: Adonay Rm, at 7:22 EDT Tel , Service support , Chest X-Ray 04/20/20 05:37 IMPRESSION: 1. Multilobar infiltrates, partial clearing of left lung base. Typical/atypical pneumonia and pulmonary edema should be considered. Electronically Signed: Aristeo Murray MD ([place]) at 9:03 EDT , Service support , Inpatient E&M: 53988 Subs Hosp L3 Procedures: 20064 Advncd Care Plan 30 Min
[2020-04-21] MEDS: Insulin Lispro 100 UNIT/ML INSULN.PEN SC ×4 (08:12→20:53)
[2020-04-21] MEDS: APIXABAN 2.5 MG TABLET PO ×2 (08:14→20:54)
[2020-04-21] MEDS: Atorvastatin Calcium 10 MG Tablet PO (08:14)
[2020-04-21] MEDS: Nystatin Powder 15gm Bottle 1 APPLIC TOPICAL ×2 (08:15→20:53)
[2020-04-21] MEDS: dexAMETHasone 10 MG/ML Vial 6 MG IV (08:15)
[2020-04-21] MEDS: Levothyroxine 125 MCG Tablet PO (08:15)
[2020-04-21 08:20] LABS: Bedside Glucose 217 mg/dL (70-110)
--- NOTE | 2020-04-21 12:47 | VDLE_ITS ---
Reason For Study: Elevated D-dimer RIGHT LEFT GSV is normal. GSV is normal. Right CFV, FV, PopV is compressible. Left CFV, FV, PopV is compressible. T/P Trunk is compressible. T/P Trunk is compressible. PTV is compressible. PTV is compressible. RT PerV is compressible. LT PerV is compressible. Procedure This is a venous duplex using B-mode, color flow and spectral Doppler. Exam performed portable in ICU/CCU. The exam was abbreviated due to the COVID 19 protocol. A preliminary report was called and/or faxed to RN. Interpretation Summary No evidence for acute deep venous thrombosis bilateral lower extremities with patent and compressible bilateral great saphenous veins. Abbreviated COVID-19 protocol Ordering Physician: Mitchell Sanchez Referring Physician: Omar Gentile Performed By: Graciela Samuel RVT
[2020-04-21 13:26] LABS: Bedside Glucose 270 mg/dL (70-110)
--- NOTE | 2020-04-21 16:20 | CASEMGMT ---
SHANON HINES ASSESSMENT Pt COVID-19 positive and in isolation precautions. Attempted to call pt in his room. No answer. Call placed to pt's cell number and pt's answered. agreeable to talking with SHANON HINES for assessment and pt's son, Derick, also got on the phone during assessment and spoke with this RN CM. Care providers, pharmacy, and demographics verified/updated at this time. PCP: Dr Omar Gentile Specialists: Sees a internet marketing intern in [place], but does not remember doctors name. Preferred Pharmacy: [facility] [employer] Insurance: MCR A, B Prescription Benefit: Yes LNOK: , Graciela. Son, Derick. Daughter, Skylar. Living Arrangements: Lives with his , Graciela in 2 story home. [employer]. 2 steps to enter. Was independent prior to illness. Family supportive. Son who lives right across the porch and daughter able to help as needed. Have several other family members/grandchildren that can help. Reviewed home isolation/quarantine precautions with and son. They have masks and disinfectants. Family can bring groceries/supplies/medications as needed. Transportation: has a vehicle someone can use. Son or daughter. Grandchildren. DME: States pt has the following DME: cane, grab bars, glucometer. Walker is available if needed. No home O2. Deny preference of DME company if home oxygen is needed. just purchased another grab bar that son will install. States no need for further DME at this time. HHC/SNF: No history of either. declines need for SNF or HHC. wishes for pt to return home and states has no concerns with going home at time of discharge. She states she feels she/family will be able to care for pt when he returns home. PT/OT evals pending. CM to follow for home oxygen needs and any further discharge planning/needs. /son voice no further concerns/needs at this time. Advised /son to ask for CM if any further questions/concerns/needs arise. They voice understanding. PLAN: Home w/family support and discharge plans in place. PT/OT evals pending. Follow for any HHC needs at discharge. Follow for anti-coagulant. May need Oxygen @ discharge. Villa LINARES RN, CM
[2020-04-21 17:35] LABS: Bedside Glucose 317 mg/dL (70-110)
[2020-04-21] MEDS: Famotidine 20 MG Tablet PO (20:53)
[2020-04-21 23:00] LABS: Bedside Glucose 273 mg/dL (70-110)
[2020-04-22] VITALS (34 sets, daily range): BP systolic 116–157; BP diastolic 51–90; PULSE 63–98; RESP 20–30; TEMP 36.2–36.9; O2SAT 86–96
--- NOTE | 2020-04-22 06:16 | PCM.PN.INT ---
Subjective: The patient was seen and examined at the bedside this morning. Events from the last 24 hours have been reviewed. The patient is currently afebrile, hemodynamically stable and maintaining appropriate oxygen saturations on Airvo heated high flow with an FiO2 requirement of 90% and flow rate of 60 L/min. The patient made it very clear this morning and that he does not wish to utilize the BiPAP anymore. Objective: The patient's most recent lab work, culture data and imaging studies have all been personally reviewed. Coronavirus PCR was positive on April 19. Blood cultures have shown no growth to date. General: Alert, Cooperative, - - Currently tolerating airvo heated high flow supplemental oxygen. HEENT: Atraumatic, PERRLA, Normocephalic Oral: No Gingival or Mucosal Lesions/ Ulcerations Neck: Supple, No Nodes, Trachea Midline Lungs: Diminished, Tachypneic Cardiovascular: Regular rate, Regular Rhythm, Normal S1, Normal S2, No murmurs Abdomen: Bowel Sounds Present, Soft, Non Tender, Obese Extremities: No clubbing, No cyanosis, Edema Skin: - - No significant change from previous Musculoskeletal: No Tenderness to Palpation of Joints or Extremities Lymphatic: No Cervical, Supraclavicular, or Inguinal Adenopathy Neurological: Cranial nerves II-XII grossly intact, Neuro grossly intact Psych/Mental Status: Normal Affect, Appropriate Vital Signs Temp Pulse Resp BP Pulse Ox 97.5 F L 72 24 H 134/61 H 95 04/22/20 06:00 04/22/20 06:00 04/22/20 06:00 04/22/20 06:00 04/22/20 06:00 Oxygen Flow Rate (L/min) 60 Oxygen Delivery Method Airvo Weight: 241 lb 9.6 oz Body Mass Index (BMI) 38.0 Intake and Output for Last 24 Hours 04/20/20 04/21/20 04/22/20 23:59 23:59 23:59 Intake Total 1745 / 1985 820 / 820 110 / 110 Output Total 2720 / 2875 1630 / 1830 695 / 695 Balance -975 / -890 -810 / -1010 -585 / -585 Labs (Last 48 Hours) 04/20/20 04/20/20 04/20/20 08:20 12:41 21:14 WBC RBC Hgb Hct MCV MCH MCHC RDW Std Deviation RDW Coeff of Hakan Plt Count MPV Immature Gran % (Auto) Neut % (Auto) Lymph % (Auto) [place] % (Auto) Eos % (Auto) Baso % (Auto) Absolute Neuts (auto) Absolute Lymphs (auto) Nucleated RBC % Sodium Potassium Chloride Carbon Dioxide Anion Gap BUN Creatinine Estim Creat Clear Calc Est GFR (MDRD) Af Amer Est GFR (MDRD) Non-Af BUN/Creatinine Ratio Glucose Calcium B-Natriuretic Peptide POC Glucose 231 H 293 H 420 H 04/21/20 04/21/20 04/21/20 04:00 04:00 04:00 WBC 16.4 H RBC 3.37 L Hgb 9.9 L Hct 30.3 L MCV 89.9 MCH 29.4 MCHC 32.7 RDW Std Deviation 45.6 H RDW Coeff of [place]akan 13.9 Plt Count 382 MPV 10.8 Immature Gran % (Auto) 1.500 H Neut % (Auto) 89.3 H Lymph % (Auto) 4.5 L [place] % (Auto) 4.6 Eos % (Auto) 0.0 Baso % (Auto) 0.1 Absolute Neuts (auto) 14.6 H Absolute Lymphs (auto) 0.74 L Nucleated RBC % 0 Sodium 135 L Potassium 4.0 Chloride 104 Carbon Dioxide 22.0 Anion Gap 9 BUN 62 H Creatinine 2.26 H Estim Creat Clear Calc 23.15 Est GFR (MDRD) Af Amer 36 L Est GFR (MDRD) Non-Af 30 L BUN/Creatinine Ratio 27.4 H Glucose 213 H Calcium 9.0 B-Natriuretic Peptide 70.0 POC Glucose 04/21/20 04/21/20 04/21/20 08:09 13:23 17:29 WBC RBC Hgb Hct MCV MCH MCHC RDW Std Deviation RDW Coeff of [place] Plt Count MPV Immature Gran % (Auto) Neut % (Auto) Lymph % (Auto) [place] % (Auto) Eos % (Auto) Baso % (Auto) Absolute Neuts (auto) Absolute Lymphs (auto) Nucleated RBC % Sodium Potassium Chloride Carbon Dioxide Anion Gap BUN Creatinine Estim Creat Clear Calc Est GFR (MDRD) Af Amer Est GFR (MDRD) Non-Af BUN/Creatinine Ratio Glucose Calcium B-Natriuretic Peptide POC Glucose 217 H 270 H 317 H 04/21/20 20:51 WBC RBC Hgb Hct MCV MCH MCHC RDW Std Deviation RDW Coeff of [place] Plt Count MPV Immature Gran % (Auto) Neut % (Auto) Lymph % (Auto) [place] % (Auto) Eos % (Auto) Baso % (Auto) Absolute Neuts (auto) Absolute Lymphs (auto) Nucleated RBC % Sodium Potassium Chloride Carbon Dioxide Anion Gap BUN Creatinine Estim Creat Clear Calc Est GFR (MDRD) Af Amer Est GFR (MDRD) Non-Af BUN/Creatinine Ratio Glucose Calcium B-Natriuretic Peptide POC Glucose 273 H Microbiology 04/19/20 06:08 Blood Culture (Wb) - Anticubital Left Blood Culture - Preliminary No growth in 48 hours. 04/19/20 06:08 Blood Culture (Wb) - Anticubital Right Blood Culture - Preliminary No growth in 48 hours. Clinical Impression(s) from Imaging Studies Chest X-Ray 04/19/20 06:40 IMPRESSION: Degenerative changes, as described above. Ill-defined subpleural groundglass opacities are seen more prominent in the lung bases , may represent atypical pneumonia or viral pneumonia (COVID-19 ?). Electronically Signed: Adonay Rm, at 7:22 EDT Tel , Service support , Chest X-Ray 04/20/20 05:37 IMPRESSION: 1. Multilobar infiltrates, partial clearing of left lung base. Typical/atypical pneumonia and pulmonary edema should be considered. Electronically Signed: Aristeo Murray MD ([place]) at 9:03 EDT , Service support , Medical Necessity - Tobacco Use Smoking Status: Never smoker Tobacco Use: Non-smoker Assessment/Plan All Active Problems TIFFANI (acute kidney injury) (Acute) Acute respiratory failure with hypoxia (Acute) Sepsis (Acute) COVID-19 (Acute) Shortness of breath (Acute) Weakness (Acute) Nonproductive cough (Acute) Pneumonia due to COVID-19 virus (Acute) RECOMMENDATIONS: 1. Continue Airvo heated high flow supplemental oxygen with a goal to maintain saturations at or above 90%. 2. Continue bronchodilator therapy. 3. Continue systemic anticoagulation with Eliquis. 4. Continue remdesivir and Decadron to complete treatment courses. IMPRESSIONS: 1. Acute hypoxic respiratory failure secondary to COVID-19 Plan to continue current supportive measures. The patient will be continued on bronchodilator therapy, systemic anticoagulation with Eliquis, Decadron and remdesivir. He has already received convalescent plasma. The patient will be continued on Airvo heated high flow for patient comfort. Agree with continuing empiric antimicrobials for now, given the patient's tenuous respiratory status. Continue to wean FiO2 to maintain oxygen saturations at or above 90%. 2. Acute on chronic kidney disease stage III Clinical suspicion for prerenal etiology secondary to hypoxia and increased insensible losses. We will continue to monitor urine output. No current indication for renal replacement therapy. 3. Diabetes mellitus type 2 Continue Lantus and sliding scale insulin regimen, especially in light of steroid-induced hyperglycemia. 4. Obesity/advanced age/hyperlipidemia/hypothyroidism Complicates care, management, recovery and prognosis. Okay to continue with baseline medications except for Cozaar secondary to acute kidney injury. Physical therapy evaluation once medically stabilized. This note was generated with Blinpick dictation software. It may contain incorrect words, spelling, and punctuation that were not noted in checking the note before signing. Inpatient E&M: 21127 [facility] Hosp L3
[2020-04-22] MEDS: Ipratropium/Albuterol Sulfate 3 ML AMPUL.NEB INHALATION ×3 (06:59→19:58)
[2020-04-22 07:10] LABS: Bedside Glucose 450 mg/dL (70-110)
[2020-04-22 07:10] LABS: Bedside Glucose 252 mg/dL (70-110)
[2020-04-22 07:10] LABS: Bedside Glucose 430 mg/dL (70-110)
--- NOTE | 2020-04-22 07:33 | PCM.PN.HOSP ---
Patient Problems: Active and Suspected Problems TIFFANI (acute kidney injury) (Acute) Acute respiratory failure with hypoxia (Acute) Sepsis (Acute) COVID-19 (Acute) Shortness of breath (Acute) Weakness (Acute) Nonproductive cough (Acute) Pneumonia due to COVID-19 virus (Acute) Reason for Visit: Hypoxic respiratory failure COVID-19 pneumonia Subjective: Patient seen remains in the ICU on high flow oxygen(Airvo heated high flow with an FiO2 requirement of 90% and flow rate of 60 L/min), apparently declined BiPAP. Went over patient's CODE STATUS with him as stated in the previous day notes patient elected to remain DO NOT RESUSCITATE Comfort Care arrest with no intubation. -Discussion with patient's son Derick Cole updated him on patient's current condition. Family is good to have a discussion and make decisions on how to proceed Objective: GENERAL: On BiPAP HEENT: Atraumatic; EYES; Anicteric, Normal Conjunctiva NECK; supple, normal thyroid, RESPIRATORY: Diminished to auscultation CARDIOVASCULAR: Regular S1 S2, GI: soft, normoactive bowel sounds, : No Renal angle tenderness; EXTREMITIES: No edema, no clubbing, MUSCULOSKELETAL: no muscle waisting NEURO: Awake; no lateralizing signs. SKIN: No Rash PSYCH; Flat affect Vitals/I&O's: Vital Signs Temp Pulse Resp BP Pulse Ox 97.5 F L 76 24 H 136/66 H 93 04/22/20 06:00 04/22/20 07:00 04/22/20 07:00 04/22/20 07:00 04/22/20 07:00 Oxygen Flow Rate (L/min) 60 Oxygen Delivery Method Airvo Weight: 109.588 kg Body Mass Index (BMI) 38.0 Intake and Output for Last 24 Hours 04/20/20 04/21/20 04/22/20 23:59 23:59 23:59 Intake Total 1744 / 1984 820 / 820 110 / 110 Output Total 2720 / 2875 1630 / 1830 695 / 695 Balance -975 / -890 -810 / -1010 -585 / -585 Microbiology Past 72 Hours 04/19/20 06:08 Blood Culture (Wb) - Anticubital Left Blood Culture - Preliminary No growth in 48 hours. 04/19/20 06:08 Blood Culture (Wb) - Anticubital Right Blood Culture - Preliminary No growth in 48 hours. Laboratory Results 04/19/20 12:24: POC Glucose 252 H 04/20/20 18:17: POC Glucose 430 H 04/20/20 18:20: POC Glucose 450 H 04/21/20 04:00: B-Natriuretic Peptide 70.0 04/21/20 08:09: POC Glucose 217 H 04/21/20 13:23: POC Glucose 270 H 04/21/20 17:29: POC Glucose 317 H 04/21/20 20:51: POC Glucose 273 H Current Medications Acetaminophen (Acetaminophen 325 Mg Tablet) 650 mg PO Q6H PRN PRN PRN Reason: Pain Score 1-10/Temp > 100.7 F Albuterol Sulfate (Albuterol Sulfate 8 Gm Inhaler (60 Puffs)) 2 puff INHALATION Q2H PRN PRN PRN Reason: SOB/Wheezing Albuterol/Ipratropium (Ipratropium/Albuterol Sulfate 3 Ml Ampul.Neb) 3 ml INHALATION Q6HWA.RT [facility] Last Admin: 04/22/20 06:59 Dose: 3 ml Documented by: Apixaban (Apixaban 2.5 Mg Tablet) 2.5 mg PO BID [facility] Last Admin: 04/21/20 20:54 Dose: 2.5 mg Documented by: Atorvastatin Calcium (Atorvastatin Calcium 10 Mg Tablet) 10 mg PO DAILY [facility] Last Admin: 04/21/20 08:14 Dose: 10 mg Documented by: Dexamethasone Sodium Phosphate (Dexamethasone 10 Mg/Ml Vial) 6 mg IV DAILY [facility] Last Admin: 04/21/20 08:15 Dose: 6 mg Documented by: Dextrose (Dextrose 50%-Water 25 Gm/50 Ml Disp.Syrin) 0 gm IV X1 PRN; Protocol PRN Reason: Hypoglycemia Famotidine (Famotidine 20 Mg Tablet) 20 mg PO QHS [facility] Last Admin: 04/21/20 20:53 Dose: 20 mg Documented by: Glucagon (Glucagon 1 Mg/Ml Syringe) 1 mg IM .X1 PRN PRN Reason: Hypoglycemia Haloperidol Lactate (Haloperidol Lactate 5 Mg/Ml Vial) 3 - 5 mg IV Q6H PRN PRN PRN Reason: ANXIETY/AGITATION Last Admin: 04/20/20 23:45 Dose: 2 mg Documented by: Sodium Chloride () 250 mls @ 15 mls/hr IV .[id number] PRN PRN Reason: Saline Flush Sodium Chloride () 250 mls @ 15 mls/hr IV .[id number] PRN PRN Reason: Additional IVPB Infusion Remdesivir (Investigational) (100 mg/ Sodium Chloride) 250 mls @ 125 mls/hr IV DAILY [facility]; Protocol Stop: 04/23/20 11:59 Last Infusion: 04/21/20 12:27 Dose: Infused Documented by: Piperacillin Sod/Tazobactam (Sod 3.375 gm/ Sodium Chloride) 50 mls @ 12.5 mls/hr IV Q8 [facility] Last Admin: 04/22/20 05:46 Dose: 12.5 mls/hr Documented by: Insulin Glargine (Insulin Glargine 100 Units/Ml Pen) 30 units SC BID [facility] Last Admin: 04/21/20 20:52 Dose: 30 u Documented by: Insulin Human Lispro (Insulin Lispro 100 Unit/Ml Insuln.Pen) 0 unit SC ACHS [facility]; Protocol Last Admin: 04/21/20 20:53 Dose: 9 u Documented by: Levothyroxine Sodium (Levothyroxine 125 Mcg Tablet) 125 mcg PO DAILY [facility] Last Admin: 04/21/20 08:15 Dose: 125 mcg Documented by: Nystatin (Nystatin Powder 15gm Bottle) 1 applic TOPICAL BID [facility]; Protocol Last Admin: 04/21/20 20:53 Dose: 1 applic Documented by: Sodium Chloride (0.9% Saline Lock 10 Ml Syringe) 10 - 40 ml IV UD PRN PRN Reason: SALINE FLUSH Last Admin: 04/20/20 21:26 Dose: 40 ml Documented by: Sodium Chloride (0.9% Saline Lock 10 Ml Syringe) 10 - 40 ml IV UD PRN PRN Reason: SALINE FLUSH STROKE Vital Signs/Narrative: Vital Signs Temp Pulse Resp BP Pulse Ox 04/22/20 07:00 76 24 H 136/66 H 93 04/22/20 06:59 88 25 H 92 04/22/20 06:00 97.5 F L 72 24 H 134/61 H 95 04/22/20 05:00 97.4 F L 68 20 H 128/55 H 95 04/22/20 04:20 89 24 H 93 04/22/20 04:00 97.2 F L 98 23 H 146/62 H 92 Medical Necessity - Tobacco Use Smoking Status: Never smoker Tobacco Use: Non-smoker Assessment/Plan All Active Problems TIFFANI (acute kidney injury) (Acute) Acute respiratory failure with hypoxia (Acute) Sepsis (Acute) COVID-19 (Acute) Shortness of breath (Acute) Weakness (Acute) Nonproductive cough (Acute) Pneumonia due to COVID-19 virus (Acute) Patient is an 84-year-old gentleman with multiple comorbidities including diabetes mellitus type 2, hypothyroidism, dyslipidemia, hypertension who presented with progressive shortness of breath. An assessment of acute hypoxic respiratory failure was made. Imaging studies obtained on admission demonstrated Ill-defined subpleural groundglass opacities are seen more prominent in the lung bases. Subsequent COVID-19 assay came back positive admitted to the intensive care unit for subsequent management 1. Acute hypoxic respiratory failure ?Secondary to COVID-19 pneumonia. Admitted to the intensive care unit with consultation placed to pulmonary medicine. Patient placed on noninvasive ventilation Airvo - Patient seen remains in the ICU on high flow oxygen(Airvo heated high flow with an FiO2 requirement of 90% and flow rate of 60 L/min), apparently declined BiPAP. Went over patient's CODE STATUS with him as stated in the previous day notes patient elected to remain DO NOT RESUSCITATE Comfort Care arrest with no intubation. -Discussion with patient's son Derick Cole updated him on patient's current condition. Family is good to have a discussion and make decisions on how to proceed 2. Acute COVID-19 pneumonia ?Admitted to the intensive care unit managed noninvasive ventilation, supplemental oxygen, systemic steroid as well as remdesivir 3. Acute kidney injury ?Superimposed on chronic kidney disease. Monitoring electrolyte 4. Hypothyroidism - Patient is on levothyroxine home dose continued 5. Hypertension - Blood pressure controlled, home medications continued with dose adjustment as needed 6. Dyslipidemia -Patient is on statin therapy, continued at home dose 7. Diabetes mellitus type 2 ?With complications including diabetic nephropathy. On Accu-Cheks before meals and at bedtime with sliding scale coverage 8. Elevated D-dimer ?Secondary to patient underlying COVID-19 infection. Patient is currently on systemic anticoagulation ordered bilateral venous duplex to rule out lower extremity DVT. Plan is will be for patient to undergo VQ scan examination to rule out PE. The aim of this is to determine duration of treatment for patient's systemic anticoagulation. -04/12/2020. Venous duplex obtained the day prior was negative for DVT. 10. DVT prophylaxis ?Systemic anticoagulation Inpatient E&M: 74208 Subs Hosp L3
[2020-04-22 08:23] LABS: Hematocrit 31.4 % (40-54); Mean Corp Hgb Conc 31.8 g/dL (32-36); Mean Platelet Vol. 11.1 fl (6.2-12.0); Platelet Count 421 K/mm3 (150-450); RBC Distribution Width CV 14.4 % (11.6-14.6); Red Blood Count 3.45 M/mm3 (4.6-6.2); White Blood Count 16.2 K/mm3 (4.4-11.0)
[2020-04-22 08:24] LABS: POSITIVE DIFFERENTIAL NO; Scan Indicated on CBC? Y/N NO
[2020-04-22 08:30] LABS: Anion Gap 8 (5-15); BUN 62 mg/dL (7-18); BUN/Creat Ratio 27.9 RATIO (10-20); Calcium,Total 9.5 mg/dL (8.5-10.1); Chloride 107 mmol/L (98-107); Creatinine, Serum 2.22 mg/dL (0.70-1.30); EST Glomerular Filtration Rate 30 mL/min (>60); Est Glom Filt Rate - Afr Amer 37 mL/min (>60); Estimated Creatinine Clearance 23.57 ml/min; Glucose 289 mg/dL (74-106); Magnesium 2.4 mg/dL (1.6-2.6); Potassium 4.1 mmol/L (3.5-5.1); Sodium Level 137 mmol/L (136-145)
[2020-04-22] MEDS: Insulin Lispro 100 UNIT/ML INSULN.PEN SC ×4 (09:17→21:39)
[2020-04-22] MEDS: Atorvastatin Calcium 10 MG Tablet PO (09:20)
[2020-04-22] MEDS: APIXABAN 2.5 MG TABLET PO ×2 (09:20→21:38)
[2020-04-22] MEDS: dexAMETHasone 10 MG/ML Vial 6 MG IV (09:20)
[2020-04-22] MEDS: Nystatin Powder 15gm Bottle 1 APPLIC TOPICAL ×2 (09:20→21:40)
[2020-04-22] MEDS: Levothyroxine 125 MCG Tablet PO (09:20)
--- NOTE | 2020-04-22 10:15 | CASEMGMT ---
RN FLORA Note: participated in ICU interdisciplinary rounds. PT/OT evals pending. Patient remains on Airvo high flow oxygen, Eliquis, Decadron and Remdesivir. Patient has already received Conv.plasma. CM will continue to follow and assist with dc needs. -DC Planning deferred as patient remains on high flow Oxygen. Anticipate will need to review PT/OT progress and Home oxygen needs for further dc planning. Jon LINARES RN ACM
[2020-04-22 12:40] LABS: Bedside Glucose 231 mg/dL (70-110)
[2020-04-22 16:01] LABS: Bedside Glucose 275 mg/dL (70-110)
[2020-04-22] MEDS: Senna/Docusate Sodium 1 Tablet 2 TABLET PO (17:01)
--- NOTE | 2020-04-22 18:37 | NURSING ---
REVIEWED P ERICK CHARTING AND AGREE WITH ASSESSMENT FINDINGS
[2020-04-22 18:50] LABS: Bedside Glucose 227 mg/dL (70-110)
[2020-04-22] MEDS: Famotidine 20 MG Tablet PO (21:38)
[2020-04-23] VITALS (35 sets, daily range): BP systolic 109–179; BP diastolic 51–99; PULSE 61–113; RESP 20–36; TEMP 36.8–37.1; O2SAT 86–97
[2020-04-23 01:36] LABS: Bedside Glucose 238 mg/dL (70-110)
[2020-04-23 04:33] LABS: Hematocrit 31.1 % (40-54); Mean Corp Hgb Conc 32.2 g/dL (32-36); Mean Corpuscular Hgb 28.9 pg (27.0-32.0); Mean Corpuscular Volume 89.9 fL (80-94); Mean Platelet Vol. 10.6 fl (6.2-12.0); Platelet Count 429 K/mm3 (150-450); RBC Distribution Width CV 14.4 % (11.6-14.6); RBC Distribution Width SD 47.1 fl (35.1-43.9); Red Blood Count 3.46 M/mm3 (4.6-6.2); White Blood Count 13.8 K/mm3 (4.4-11.0)
[2020-04-23 04:45] LABS: Anion Gap 7 (5-15); BUN 52 mg/dL (7-18); BUN/Creat Ratio 27.7 RATIO (10-20); Calcium,Total 8.7 mg/dL (8.5-10.1); Chloride 108 mmol/L (98-107); Creatinine, Serum 1.88 mg/dL (0.70-1.30); EST Glomerular Filtration Rate 37 mL/min (>60); Est Glom Filt Rate - Afr Amer 44 mL/min (>60); Estimated Creatinine Clearance 27.83 ml/min; Glucose 208 mg/dL (74-106); Sodium Level 139 mmol/L (136-145)
--- NOTE | 2020-04-23 06:08 | PN_ITS ---
Subjective: The patient was seen and examined at the bedside this morning. Events from the last 24 hours have been reviewed. The patient is currently afebrile, hemodynamically stable and maintaining appropriate oxygen saturations on Airvo heated high flow with an FiO2 requirement of 90% and flow rate of 60 L/min. Creatinine has improved this morning to 1.88. Lower extremity Doppler studies were negative for the presence of DVT. The patient remains on Eliquis, Decadron and remdesivir. He has already received convalescent plasma. The patient is currently documented to be overall net -1.6 L for the hospital admission. Objective: The patient's most recent lab work, culture data and imaging studies have all been personally reviewed. Coronavirus PCR was positive on April 19. Blood cultures have shown no growth to date. General: Alert, Cooperative HEENT: Atraumatic, Normocephalic Oral: No Gingival or Mucosal Lesions/ Ulcerations Neck: Supple, No Nodes, Trachea Midline Lungs: Diminished, Tachypneic Cardiovascular: Regular rate, Regular Rhythm Abdomen: Bowel Sounds Present, Soft, Non Tender, Obese Extremities: No clubbing, No cyanosis Skin: - - No significant change from previous Musculoskeletal: No Muscle Wasting Lymphatic: No Cervical, Supraclavicular, or Inguinal Adenopathy Neurological: Cranial nerves II-XII grossly intact, Neuro grossly intact Psych/Mental Status: Normal Affect, Appropriate Vital Signs Temp Pulse Resp BP Pulse Ox 98.2 F 69 23 H 152/67 H 94 04/23/20 05:00 04/23/20 05:00 04/23/20 05:00 04/23/20 05:00 04/23/20 05:00 Oxygen Flow Rate (L/min) 60 Oxygen Delivery Method Airvo Weight: 236 lb 12.423 oz Body Mass Index (BMI) 38.0 Intake and Output for Last 24 Hours 04/21/20 04/22/20 04/23/20 23:59 23:59 23:59 Intake Total 820 / 820 1860 / 1860 50 / 50 Output Total 1630 / 1830 2220 / 2395 550 / 550 Balance -810 / -1010 -360 / -535 -500 / -500 Labs (Last 48 Hours) 04/19/20 04/20/20 04/20/20 12:24 18:17 18:20 WBC RBC Hgb Hct MCV MCH MCHC RDW Std Deviation RDW Coeff of Hakan Plt Count MPV Sodium Potassium Chloride Carbon Dioxide Anion Gap BUN Creatinine Estim Creat Clear Calc Est GFR (MDRD) Af Amer Est GFR (MDRD) Non-Af BUN/Creatinine Ratio Glucose Calcium Magnesium B-Natriuretic Peptide POC Glucose 252 H 430 H 450 H 04/21/20 04/21/20 04/21/20 04:00 08:09 13:23 WBC RBC Hgb Hct MCV MCH MCHC RDW Std Deviation RDW Coeff of [place]akan Plt Count MPV Sodium Potassium Chloride Carbon Dioxide Anion Gap BUN Creatinine Estim Creat Clear Calc Est GFR (MDRD) Af Amer Est GFR (MDRD) Non-Af BUN/Creatinine Ratio Glucose Calcium Magnesium B-Natriuretic Peptide 70.0 POC Glucose 217 H 270 H 04/21/20 04/21/20 04/22/20 17:29 20:51 04:00 WBC 16.2 H RBC 3.45 L Hgb 10.0 L Hct 31.4 L MCV 91.0 MCH 29.0 MCHC 31.8 L RDW Std Deviation 48.0 H RDW Coeff of Hakan 14.4 Plt Count 421 MPV 11.1 Sodium Potassium Chloride Carbon Dioxide Anion Gap BUN Creatinine Estim Creat Clear Calc Est GFR (MDRD) Af Amer Est GFR (MDRD) Non-Af BUN/Creatinine Ratio Glucose Calcium Magnesium B-Natriuretic Peptide POC Glucose 317 H 273 H 04/22/20 04/22/20 04/22/20 04:00 09:02 13:06 WBC RBC Hgb Hct MCV MCH MCHC RDW Std Deviation RDW Coeff of Hakan Plt Count MPV Sodium 137 Potassium 4.1 Chloride 107 Carbon Dioxide 22.0 Anion Gap 8 BUN 62 H Creatinine 2.22 H Estim Creat Clear Calc 23.57 Est GFR (MDRD) Af Amer 37 L Est GFR (MDRD) Non-Af 30 L BUN/Creatinine Ratio 27.9 H Glucose 289 H Calcium 9.5 Magnesium 2.4 B-Natriuretic Peptide POC Glucose 231 H 275 H 04/22/20 04/22/20 04/23/20 17:13 21:35 04:15 WBC 13.8 H RBC 3.46 L Hgb 10.0 L Hct 31.1 L MCV 89.9 MCH 28.9 MCHC 32.2 RDW Std Deviation 47.1 H RDW Coeff of Hakan 14.4 Plt Count 429 MPV 10.6 Sodium Potassium Chloride Carbon Dioxide Anion Gap BUN Creatinine Estim Creat Clear Calc Est GFR (MDRD) Af Amer Est GFR (MDRD) Non-Af BUN/Creatinine Ratio Glucose Calcium Magnesium B-Natriuretic Peptide POC Glucose 227 H 238 H 04/23/20 04:15 WBC RBC Hgb Hct MCV MCH MCHC RDW Std Deviation RDW Coeff of Hakan Plt Count MPV Sodium 139 Potassium 4.0 Chloride 108 H Carbon Dioxide 24.0 Anion Gap 7 BUN 52 H Creatinine 1.88 H Estim Creat Clear Calc 27.83 Est GFR (MDRD) Af Amer 44 L Est GFR (MDRD) Non-Af 37 L BUN/Creatinine Ratio 27.7 H Glucose 208 H Calcium 8.7 Magnesium B-Natriuretic Peptide POC Glucose Microbiology 04/19/20 06:08 Blood Culture (Wb) - Anticubital Left Blood Culture - Preliminary No growth in 48 hours. 04/19/20 06:08 Blood Culture (Wb) - Anticubital Right Blood Culture - Preliminary No growth in 48 hours. Clinical Impression(s) from Imaging Studies Chest X-Ray 04/19/20 06:40 IMPRESSION: Degenerative changes, as described above. Ill-defined subpleural groundglass opacities are seen more prominent in the lung bases , may represent atypical pneumonia or viral pneumonia (COVID-19 ?). Electronically Signed: Adonay Rm at 7:22 EDT Tel , Service support , Chest X-Ray 04/20/20 05:37 IMPRESSION: 1. Multilobar infiltrates, partial clearing of left lung base. Typical/atypical pneumonia and pulmonary edema should be considered. Electronically Signed: Aristeo Murray MD ([place]) at 9:03 EDT , Service support , Medical Necessity - Tobacco Use Smoking Status: Never smoker Tobacco Use: Non-smoker Assessment/Plan All Active Problems TIFFANI (acute kidney injury) (Acute) Acute respiratory failure with hypoxia (Acute) Sepsis (Acute) COVID-19 (Acute) Shortness of breath (Acute) Weakness (Acute) Nonproductive cough (Acute) Pneumonia due to COVID-19 virus (Acute) RECOMMENDATIONS: 1. Continue Airvo heated high flow supplemental oxygen with a goal to maintain saturations at or above 90%. 2. Continue bronchodilator therapy. 3. Continue systemic anticoagulation with Eliquis. 4. Continue remdesivir and Decadron to complete treatment courses. 5. Encourage incentive spirometer use and mobilize patient as tolerated. 6. Continue antibiotics with plans to complete a 7-day treatment course. IMPRESSIONS: 1. Acute hypoxic respiratory failure secondary to COVID-19 Plan to continue current supportive measures. The patient will be continued on bronchodilator therapy, systemic anticoagulation with Eliquis, Decadron and remdesivir. He has already received convalescent plasma. The patient will be continued on Airvo heated high flow for patient comfort. Agree with continuing empiric antimicrobials for now, given the patient's tenuous respiratory status. Continue to wean FiO2 to maintain oxygen saturations at or above 90%. 2. Acute on chronic kidney disease stage III Clinical suspicion for prerenal etiology secondary to hypoxia and increased insensible losses. We will continue to monitor urine output. No current indication for renal replacement therapy. 3. Diabetes mellitus type 2 Continue Lantus and sliding scale insulin regimen, especially in light of sergio roid-induced hyperglycemia. 4. Obesity/advanced age/hyperlipidemia/hypothyroidism Complicates care, management, recovery and prognosis. Okay to continue with baseline medications except for Cozaar secondary to acute kidney injury. Physical therapy evaluation once medically stabilized. TIME: 35 minutes of critical care time was spent addressing the patient's acute hypoxemic respiratory failure secondary to Covid pneumonia, acute on chronic kidney disease, diabetes mellitus, review of all data and collaboration with the care team. ([id number]) [id number] Critical care first hour
[2020-04-23] MEDS: Ipratropium/Albuterol Sulfate 3 ML AMPUL.NEB INHALATION ×3 (06:59→18:58)
--- NOTE | 2020-04-23 07:18 | PCM.PN.HOSP ---
Patient Problems: Active and Suspected Problems TIFFANI (acute kidney injury) (Acute) Acute respiratory failure with hypoxia (Acute) Sepsis (Acute) COVID-19 (Acute) Shortness of breath (Acute) Weakness (Acute) Nonproductive cough (Acute) Pneumonia due to COVID-19 virus (Acute) Reason for Visit: COVID-19 pneumonia Subjective: Patient seen no significant improvement in his condition still remains on noninvasive ventilation via airvo flow oxygen. Patient refuses BiPAP. Had a discussion with family today prior awaiting the final decision. Objective: GENERAL: On airvo HEENT: Atraumatic; EYES; Anicteric, Normal Conjunctiva NECK; supple, normal thyroid, RESPIRATORY: Diminished to auscultation CARDIOVASCULAR: Regular S1 S2, GI: soft, normoactive bowel sounds, : No Renal angle tenderness; EXTREMITIES: No edema, no clubbing, MUSCULOSKELETAL: no muscle waisting NEURO: Awake; no lateralizing signs. SKIN: No Rash PSYCH; Flat affect Vitals/I&O's: Vital Signs Temp Pulse Resp BP Pulse Ox 98.3 F 62 30 H 139/60 H 90 04/23/20 07:00 04/23/20 07:00 04/23/20 07:00 04/23/20 07:00 04/23/20 07:00 Oxygen Flow Rate (L/min) 60 Oxygen Delivery Method Airvo Weight: 107.4 kg Body Mass Index (BMI) 38.0 Intake and Output for Last 24 Hours 04/21/20 04/22/20 04/23/20 23:59 23:59 23:59 Intake Total 820 / 820 1860 / 1860 50 / 50 Output Total 1630 / 1830 2220 / 2395 800 / 800 Balance -810 / -1010 -360 / -535 -750 / -750 Microbiology Past 72 Hours 04/19/20 06:08 Blood Culture (Wb) - Anticubital Left Blood Culture - Preliminary No growth in 48 hours. 04/19/20 06:08 Blood Culture (Wb) - Anticubital Right Blood Culture - Preliminary No growth in 48 hours. Laboratory Results 04/22/20 04:00: WBC 16.2 H, RBC 3.45 L, Hgb 10.0 L, Hct 31.4 L, MCV 91.0, MCH 29.0, MCHC 31.8 L, RDW Std Deviation 48.0 H, RDW Coeff of Hakan 14.4, Plt Count 421, MPV 11.1 04/22/20 04:00: Sodium 137, Potassium 4.1, Chloride 107, Carbon Dioxide 22.0, Anion Gap 8, BUN 62 H, Creatinine 2.22 H, Estim Creat Clear Calc 23.57, Est GFR (MDRD) Af Amer 37 L, Est GFR (MDRD) Non-Af 30 L, BUN/Creatinine Ratio 27.9 H, Glucose 289 H, Calcium 9.5, Magnesium 2.4 04/22/20 09:02: POC Glucose 231 H 04/22/20 13:06: POC Glucose 275 H 04/22/20 17:13: POC Glucose 227 H 04/22/20 21:35: POC Glucose 238 H 04/23/20 04:15: WBC 13.8 H, RBC 3.46 L, Hgb 10.0 L, Hct 31.1 L, MCV 89.9, MCH 28.9, MCHC 32.2, RDW Std Deviation 47.1 H, RDW Coeff of Hakan 14.4, Plt Count 429, MPV 10.6 04/23/20 04:15: Sodium 139, Potassium 4.0, Chloride 108 H, Carbon Dioxide 24.0, Anion Gap 7, BUN 52 H, Creatinine 1.88 H, Estim Creat Clear Calc 27.83, Est GFR (MDRD) Af Amer 44 L, Est GFR (MDRD) Non-Af 37 L, BUN/Creatinine Ratio 27.7 H, Glucose 208 H, Calcium 8.7 Current Medications Acetaminophen (Acetaminophen 325 Mg Tablet) 650 mg PO Q6H PRN PRN PRN Reason: Pain Score 1-10/Temp > 100.7 F Albuterol Sulfate (Albuterol Sulfate 8 Gm Inhaler (60 Puffs)) 2 puff INHALATION Q2H PRN PRN PRN Reason: SOB/Wheezing Albuterol/Ipratropium (Ipratropium/Albuterol Sulfate 3 Ml Ampul.Neb) 3 ml INHALATION Q6HWA.RT ZENA Last Admin: 04/22/20 19:58 Dose: 3 ml Documented by: Apixaban (Apixaban 2.5 Mg Tablet) 2.5 mg PO BID ZENA Last Admin: 04/22/20 21:38 Dose: 2.5 mg Documented by: Atorvastatin Calcium (Atorvastatin Calcium 10 Mg Tablet) 10 mg PO DAILY [facility] Last Admin: 04/22/20 09:20 Dose: 10 mg Documented by: Dexamethasone Sodium Phosphate (Dexamethasone 10 Mg/Ml Vial) 6 mg IV DAILY [facility] Last Admin: 04/22/20 09:20 Dose: 6 mg Documented by: Dextrose (Dextrose 50%-Water 25 Gm/50 Ml Disp.Syrin) 0 gm IV X1 PRN; Protocol PRN Reason: Hypoglycemia Famotidine (Famotidine 20 Mg Tablet) 20 mg PO QHS [facility] Last Admin: 04/22/20 21:38 Dose: 20 mg Documented by: Glucagon (Glucagon 1 Mg/Ml Syringe) 1 mg IM .X1 PRN PRN Reason: Hypoglycemia Haloperidol Lactate (Haloperidol Lactate 5 Mg/Ml Vial) 3 - 5 mg IV Q6H PRN PRN PRN Reason: ANXIETY/AGITATION Last Admin: 04/20/20 23:45 Dose: 2 mg Documented by: Sodium Chloride () 250 mls @ 15 mls/hr IV .[id number] PRN PRN Reason: Saline Flush Sodium Chloride () 250 mls @ 15 mls/hr IV .[id number] PRN PRN Reason: Additional IVPB Infusion Remdesivir (Investigational) (100 mg/ Sodium Chloride) 250 mls @ 125 mls/hr IV DAILY [facility]; Protocol Stop: 04/23/20 11:59 Last Infusion: 04/22/20 14:52 Dose: Infused Documented by: Piperacillin Sod/Tazobactam (Sod 3.375 gm/ Sodium Chloride) 50 mls @ 12.5 mls/hr IV Q8 [facility] Last Admin: 04/23/20 07:04 Dose: 12.5 mls/hr Documented by: Insulin Glargine (Insulin Glargine 100 Units/Ml Pen) 40 units SC BID [facility] Last Admin: 04/22/20 21:39 Dose: 40 u Documented by: Insulin Human Lispro (Insulin Lispro 100 Unit/Ml Insuln.Pen) 0 unit SC ACHS [facility]; Protocol Last Admin: 04/22/20 21:39 Dose: 6 u Documented by: Levothyroxine Sodium (Levothyroxine 125 Mcg Tablet) 125 mcg PO DAILY [facility] Last Admin: 04/22/20 09:20 Dose: 125 mcg Documented by: Nystatin (Nystatin Powder 15gm Bottle) 1 applic TOPICAL BID [facility]; Protocol Last Admin: 04/22/20 21:40 Dose: 1 applic Documented by: Senna/Docusate Sodium (Senna/Docusate Sodium 1 Tablet) 2 tablet PO BID PRN PRN PRN Reason: CONSTIPATION Last Admin: 04/22/20 17:01 Dose: 2 tablet Documented by: Sodium Chloride (0.9% Saline Lock 10 Ml Syringe) 10 - 40 ml IV UD PRN PRN Reason: SALINE FLUSH Last Admin: 04/20/20 21:26 Dose: 40 ml Documented by: Sodium Chloride (0.9% Saline Lock 10 Ml Syringe) 10 - 40 ml IV UD PRN PRN Reason: SALINE FLUSH STROKE Vital Signs/Narrative: Vital Signs Temp Pulse Resp BP Pulse Ox 04/23/20 07:00 98.3 F 62 30 H 139/60 H 90 04/23/20 06:46 70 30 H 04/23/20 06:00 98.3 F 61 33 H 125/66 H 91 04/23/20 05:00 98.2 F 69 23 H 152/67 H 94 04/23/20 04:12 75 26 H 97 04/23/20 04:00 98.2 F 100 25 H 140/63 H 95 Medical Necessity - Tobacco Use Smoking Status: Never smoker Tobacco Use: Non-smoker Assessment/Plan All Active Problems TIFFANI (acute kidney injury) (Acute) Acute respiratory failure with hypoxia (Acute) Sepsis (Acute) COVID-19 (Acute) Shortness of breath (Acute) Weakness (Acute) Nonproductive cough (Acute) Pneumonia due to COVID-19 virus (Acute) Patient is an 84-year-old gentleman with multiple comorbidities including diabetes mellitus type 2, hypothyroidism, dyslipidemia, hypertension who presented with progressive shortness of breath. An assessment of acute hypoxic respiratory failure was made. Imaging studies obtained on admission demonstrated Ill-defined subpleural groundglass opacities are seen more prominent in the lung bases. Subsequent COVID-19 assay came back positive admitted to the intensive care unit for subsequent management 1. Acute hypoxic respiratory failure ?Secondary to COVID-19 pneumonia. Admitted to the intensive care unit with consultation placed to pulmonary medicine. Patient placed on noninvasive ventilation Airvo - Patient seen remains in the ICU on high flow oxygen(Airvo heated high flow with an FiO2 requirement of 90% and flow rate of 60 L/min), apparently declined BiPAP. Went over patient's CODE STATUS with him as stated in the previous day notes patient elected to remain DO NOT RESUSCITATE Comfort Care arrest with no intubation. -Discussion with patient's son Derick Cole updated him on patient's current condition. Family is good to have a discussion and make decisions on how to proceed -04/23/2020: No significant change in patient's clinical condition remains on high flow noninvasive ventilation. 2. Acute COVID-19 pneumonia ?Admitted to the intensive care unit managed noninvasive ventilation, supplemental oxygen, systemic steroid as well as remdesivir 3. Acute kidney injury ?Superimposed on chronic kidney disease. Monitoring electrolyte 4. Hypothyroidism - Patient is on levothyroxine home dose continued 5. Hypertension - Blood pressure controlled, home medications continued with dose adjustment as needed 6. Dyslipidemia -Patient is on statin therapy, continued at home dose 7. Diabetes mellitus type 2 ?With complications including diabetic nephropathy. On Accu-Cheks before meals and at bedtime with sliding scale coverage 8. Elevated D-dimer ?Secondary to patient underlying COVID-19 infection. Patient is currently on systemic anticoagulation ordered bilateral venous duplex to rule out lower extremity DVT. Plan is will be for patient to undergo VQ scan examination to rule out PE. The aim of this is to determine duration of treatment for patient's systemic anticoagulation. -04/12/2020. Venous duplex obtained the day prior was negative for DVT. 10. DVT prophylaxis ?Systemic anticoagulation Inpatient E&M: [id number] [facility] Hosp L2
[2020-04-23] MEDS: Insulin Lispro 100 UNIT/ML INSULN.PEN SC ×4 (08:32→21:18)
[2020-04-23] MEDS: APIXABAN 2.5 MG TABLET PO ×2 (08:33→21:19)
[2020-04-23] MEDS: Atorvastatin Calcium 10 MG Tablet PO (08:33)
[2020-04-23] MEDS: Nystatin Powder 15gm Bottle 1 APPLIC TOPICAL ×2 (08:33→21:19)
[2020-04-23] MEDS: Levothyroxine 125 MCG Tablet PO (08:33)
[2020-04-23] MEDS: dexAMETHasone 10 MG/ML Vial 6 MG IV (08:33)
[2020-04-23 08:40] LABS: Bedside Glucose 157 mg/dL (70-110)
[2020-04-23 09:06] LABS: Bedside Glucose 323 mg/dL (70-110)
--- NOTE | 2020-04-23 09:40 | CASEMGMT ---
SHANON HINES Note: Participated in ICU interdisciplinary rounds. Patient remains on Airvo high flow oxygen, Eliquis, Decadron and Remdesivir. Patient has already received Convalescent plasma. Pt fails mobility screening d/t high oxygen needs. PT/OT evals on hold. CM will continue to follow and assist with dc needs. -DC Planning deferred as patient remains on high flow Oxygen. Anticipate will need to review PT/OT progress and Home oxygen needs for further dc planning. Villa TAYLORN RN CM
[2020-04-23 11:11] LABS: Bedside Glucose 208 mg/dL (70-110)
[2020-04-23] MEDS: 0.9% Saline Lock 10 ML Syringe IV (17:00)
[2020-04-23 17:05] LABS: Bedside Glucose 213 mg/dL (70-110)
[2020-04-23] MEDS: Famotidine 20 MG Tablet PO (21:19)
[2020-04-23 21:36] LABS: Bedside Glucose 316 mg/dL (70-110)
[2020-04-24] VITALS (33 sets, daily range): BP systolic 94–198; BP diastolic 49–104; PULSE 76–122; RESP 12–44; TEMP 36.1–37.7; O2SAT 82–93
[2020-04-24] MEDS: 0.9% Saline Lock 10 ML Syringe IV ×3 (04:57→21:51)
[2020-04-24 05:11] LABS: Hematocrit 31.5 % (40-54); Hemoglobin 10.4 g/dL (13.0-16.5); Mean Corpuscular Hgb 29.4 pg (27.0-32.0); Mean Platelet Vol. 10.6 fl (6.2-12.0); POSITIVE COUNT YES; POSITIVE MORPHOLOGY YES; Platelet Count 435 K/mm3 (150-450); RBC Distribution Width CV 14.5 % (11.6-14.6); RBC Distribution Width SD 46.9 fl (35.1-43.9); Red Blood Count 3.54 M/mm3 (4.6-6.2); White Blood Count 14.3 K/mm3 (4.4-11.0)
[2020-04-24 05:14] LABS: Scan Indicated on CBC? Y/N YES- FLAGS NOTED
[2020-04-24 05:23] LABS: Anion Gap 9 (5-15); BUN 52 mg/dL (7-18); BUN/Creat Ratio 31.5 RATIO (10-20); Calcium,Total 8.9 mg/dL (8.5-10.1); Chloride 108 mmol/L (98-107); Creatinine, Serum 1.65 mg/dL (0.70-1.30); EST Glomerular Filtration Rate 43 mL/min (>60); Est Glom Filt Rate - Afr Amer 51 mL/min (>60); Estimated Creatinine Clearance 31.71 ml/min; Glucose 136 mg/dL (74-106); Potassium 3.7 mmol/L (3.5-5.1); Sodium Level 140 mmol/L (136-145)
--- NOTE | 2020-04-24 06:22 | PCM.PN.INT ---
Subjective: The patient was seen and examined at the bedside this morning. Events from the last 24 hours have been reviewed. The patient is currently afebrile, hemodynamically stable and maintaining appropriate oxygen saturations on Airvo heated high flow oxygen with an FiO2 requirement of 90% and flow rate of 60 L/min. Creatinine continues to improve at 1.65 this morning. The patient is currently documented to be overall net -3 L for the hospital admission. The patient does report a mild degree of shortness of breath and nonproductive cough. Objective: The patient's most recent lab work, culture data and imaging studies have all been personally reviewed. Coronavirus PCR was positive on April 19. Blood cultures have shown no growth to date. General: Alert, Cooperative HEENT: Atraumatic, Normocephalic Oral: No Gingival or Mucosal Lesions/ Ulcerations Neck: Supple, No Nodes, Trachea Midline Lungs: Diminished, Rales, Tachypneic Cardiovascular: Normal S1, Normal S2, Tachycardic Abdomen: Bowel Sounds Present, Soft, Non Tender, Obese Extremities: No clubbing, No cyanosis Skin: No breakdown Musculoskeletal: No Tenderness to Palpation of Joints or Extremities Lymphatic: No Cervical, Supraclavicular, or Inguinal Adenopathy Neurological: Cranial nerves II-XII grossly intact, Neuro grossly intact Psych/Mental Status: Normal Affect, Appropriate Vital Signs Temp Pulse Resp BP Pulse Ox 99 F 88 28 H 161/74 H 89 04/24/20 04:59 04/24/20 04:59 04/24/20 04:59 04/24/20 04:59 04/24/20 04:59 Oxygen Flow Rate (L/min) 60 Oxygen Delivery Method Airvo Weight: 236 lb 12.423 oz Body Mass Index (BMI) 38.0 Intake and Output for Last 24 Hours 04/22/20 04/23/20 04/24/20 23:59 23:59 23:59 Intake Total 1860 / 1860 400 / 400 80 / 80 Output Total 2220 / 2395 2100 / 2400 600 / 600 Balance -360 / -535 -1700 / -2000 -520 / -520 Labs (Last 48 Hours) 04/19/20 04/19/20 04/20/20 12:24 16:55 18:17 WBC RBC Hgb Hct MCV MCH MCHC RDW Std Deviation RDW Coeff of Hakan Plt Count MPV Sodium Potassium Chloride Carbon Dioxide Anion Gap BUN Creatinine Estim Creat Clear Calc Est GFR (MDRD) Af Amer Est GFR (MDRD) Non-Af BUN/Creatinine Ratio Glucose Calcium Magnesium POC Glucose 252 H 323 H 430 H 04/20/20 04/22/20 04/22/20 18:20 04:00 04:00 WBC 16.2 H RBC 3.45 L Hgb 10.0 L Hct 31.4 L MCV 91.0 MCH 29.0 MCHC 31.8 L RDW Std Deviation 48.0 H RDW Coeff of Hakan 14.4 Plt Count 421 MPV 11.1 Sodium 137 Potassium 4.1 Chloride 107 Carbon Dioxide 22.0 Anion Gap 8 BUN 62 H Creatinine 2.22 H Estim Creat Clear Calc 23.57 Est GFR (MDRD) Af Amer 37 L Est GFR (MDRD) Non-Af 30 L BUN/Creatinine Ratio 27.9 H Glucose 289 H Calcium 9.5 Magnesium 2.4 POC Glucose 450 H 04/22/20 04/22/20 04/22/20 09:02 13:06 17:13 WBC RBC Hgb Hct MCV MCH MCHC RDW Std Deviation RDW Coeff of Hakan Plt Count MPV Sodium Potassium Chloride Carbon Dioxide Anion Gap BUN Creatinine Estim Creat Clear Calc Est GFR (MDRD) Af Amer Est GFR (MDRD) Non-Af BUN/Creatinine Ratio Glucose Calcium Magnesium POC Glucose 231 H 275 H 227 H 04/22/20 04/23/20 04/23/20 21:35 04:15 04:15 WBC 13.8 H RBC 3.46 L Hgb 10.0 L Hct 31.1 L MCV 89.9 MCH 28.9 MCHC 32.2 RDW Std Deviation 47.1 H RDW Coeff of Hakan 14.4 Plt Count 429 MPV 10.6 Sodium 139 Potassium 4.0 Chloride 108 H Carbon Dioxide 24.0 Anion Gap 7 BUN 52 H Creatinine 1.88 H Estim Creat Clear Calc 27.83 Est GFR (MDRD) Af Amer 44 L Est GFR (MDRD) Non-Af 37 L BUN/Creatinine Ratio 27.7 H Glucose 208 H Calcium 8.7 Magnesium POC Glucose 238 H 04/23/20 04/23/20 04/23/20 08:25 11:00 16:58 WBC RBC Hgb Hct MCV MCH MCHC RDW Std Deviation RDW Coeff of Hakan Plt Count MPV Sodium Potassium Chloride Carbon Dioxide Anion Gap BUN Creatinine Estim Creat Clear Calc Est GFR (MDRD) Af Amer Est GFR (MDRD) Non-Af BUN/Creatinine Ratio Glucose Calcium Magnesium POC Glucose 157 H 208 H 213 H 04/23/20 04/24/20 04/24/20 21:16 04:50 04:50 WBC 14.3 H RBC 3.54 L Hgb 10.4 L Hct 31.5 L MCV 89.0 MCH 29.4 MCHC 33.0 RDW Std Deviation 46.9 H RDW Coeff of Hakan 14.5 Plt Count 435 MPV 10.6 Sodium 140 Potassium 3.7 Chloride 108 H Carbon Dioxide 23.0 Anion Gap 9 BUN 52 H Creatinine 1.65 H Estim Creat Clear Calc 31.71 Est GFR (MDRD) Af Amer 51 L Est GFR (MDRD) Non-Af 43 L BUN/Creatinine Ratio 31.5 H Glucose 136 H Calcium 8.9 Magnesium POC Glucose 316 H Clinical Impression(s) from Imaging Studies Chest X-Ray 04/19/20 06:40 IMPRESSION: Degenerative changes, as described above. Ill-defined subpleural groundglass opacities are seen more prominent in the lung bases , may represent atypical pneumonia or viral pneumonia (COVID-19 ?). Electronically Signed: Adonay Rm at 7:22 EDT Tel , Service support , Chest X-Ray 04/20/20 05:37 IMPRESSION: 1. Multilobar infiltrates, partial clearing of left lung base. Typical/atypical pneumonia and pulmonary edema should be considered. Electronically Signed: Aristeo Murray MD ([place]) at 9:03 EDT , Service support , Medical Necessity - Tobacco Use Smoking Status: Never smoker Tobacco Use: Non-smoker Assessment/Plan All Active Problems TIFFANI (acute kidney injury) (Acute) Acute respiratory failure with hypoxia (Acute) Sepsis (Acute) COVID-19 (Acute) Shortness of breath (Acute) Weakness (Acute) Nonproductive cough (Acute) Pneumonia due to COVID-19 virus (Acute) RECOMMENDATIONS: 1. Continue Airvo heated high flow supplemental oxygen with a goal to maintain saturations at or above 90%. 2. Continue bronchodilator therapy. 3. Continue systemic anticoagulation with Eliquis. 4. Continue remdesivir and Decadron to complete treatment courses. 5. Encourage incentive spirometer use and mobilize patient as tolerated. 6. Continue antibiotics with plans to complete a 7-day treatment course. 7. Attempt gentle diuresis today. IMPRESSIONS: 1. Acute hypoxic respiratory failure secondary to COVID-19 Plan to continue current supportive measures. The patient will be continued on bronchodilator therapy, systemic anticoagulation with Eliquis, Decadron and remdesivir. He has already received convalescent plasma. The patient will be continued on Airvo heated high flow for patient comfort. Agree with continuing empiric antimicrobials for now, given the patient's tenuous respiratory status. Continue to wean FiO2 to maintain oxygen saturations at or above 90%. 2. Acute on chronic kidney disease stage III Improving. Clinical suspicion for prerenal etiology secondary to hypoxia and increased insensible losses. We will continue to monitor urine output. No current indication for renal replacement therapy. 3. Diabetes mellitus type 2 Continue Lantus and sliding scale insulin regimen, especially in light of steroid-induced hyperglycemia. 4. Obesity/advanced age/hyperlipidemia/hypothyroidism Complicates care, management, recovery and prognosis. Okay to continue with baseline medications except for Cozaar secondary to acute kidney injury. Physical therapy evaluation once medically stabilized. TIME: 31 minutes of critical care time was spent addressing the patient's acute hypoxemic respiratory failure secondary to Covid pneumonia, acute on chronic kidney disease, diabetes mellitus, review of all data and collaboration with the care team. ([id number]) [id number] Critical care first hour
[2020-04-24 06:56] LABS: Differential Comment SCANNED
[2020-04-24] MEDS: Ipratropium/Albuterol Sulfate 3 ML AMPUL.NEB INHALATION ×2 (07:03→20:50)
--- NOTE | 2020-04-24 07:30 | PCM.PN.HOSP ---
Patient Problems: Active and Suspected Problems TIFFANI (acute kidney injury) (Acute) Acute respiratory failure with hypoxia (Acute) Sepsis (Acute) COVID-19 (Acute) Shortness of breath (Acute) Weakness (Acute) Nonproductive cough (Acute) Pneumonia due to COVID-19 virus (Acute) Reason for Visit: Acute hypoxic respiratory failure COVID-19 pneumonia Subjective: Seen clinical condition continues to deteriorate. Patient oxygen saturation remains in the mid 80s despite being on high flow oxygen. He finally agreed to go on BiPAP. Objective: GENERAL: On airvo HEENT: Atraumatic; EYES; Anicteric, Normal Conjunctiva NECK; supple, normal thyroid, RESPIRATORY: Diminished to auscultation CARDIOVASCULAR: Regular S1 S2, GI: soft, normoactive bowel sounds, : No Renal angle tenderness; EXTREMITIES: No edema, no clubbing, MUSCULOSKELETAL: no muscle waisting NEURO: Awake; no lateralizing signs. SKIN: No Rash PSYCH; Flat affect Vitals/I&O's: Vital Signs Temp Pulse Resp BP Pulse Ox 99.4 F H 109 H 30 H 184/71 H 85 04/24/20 07:00 04/24/20 07:03 04/24/20 07:03 04/24/20 07:00 04/24/20 07:03 Oxygen Flow Rate (L/min) 60 Oxygen Delivery Method Airvo Weight: 109.815 kg Body Mass Index (BMI) 38.0 Intake and Output for Last 24 Hours 04/22/20 04/23/20 04/24/20 23:59 23:59 23:59 Intake Total 1860 / 1860 400 / 400 80 / 80 Output Total 2220 / 2395 2100 / 2400 600 / 600 Balance -360 / -535 -1700 / -2000 -520 / -520 Microbiology Past 72 Hours 04/19/20 06:08 Blood Culture (Wb) - Anticubital Left Blood Culture - Preliminary No growth in 48 hours. 04/19/20 06:08 Blood Culture (Wb) - Anticubital Right Blood Culture - Preliminary No growth in 48 hours. Laboratory Results 04/19/20 16:55: POC Glucose 323 H 04/23/20 08:25: POC Glucose 157 H 04/23/20 11:00: POC Glucose 208 H 04/23/20 16:58: POC Glucose 213 H 10/21/20 21:16: POC Glucose 316 H 04/24/20 04:50: WBC 14.3 H, RBC 3.54 L, Hgb 10.4 L, Hct 31.5 L, MCV 89.0, MCH 29.4, MCHC 33.0, RDW Std Deviation 46.9 H, RDW Coeff of Hakan 14.5, Plt Count 435, MPV 10.6, Differential Comment SCANNED 04/24/20 04:50: Sodium 140, Potassium 3.7, Chloride 108 H, Carbon Dioxide 23.0, Anion Gap 9, BUN 52 H, Creatinine 1.65 H, Estim Creat Clear Calc 31.71, Est GFR (MDRD) Af Amer 51 L, Est GFR (MDRD) Non-Af 43 L, BUN/Creatinine Ratio 31.5 H, Glucose 136 H, Calcium 8.9 Current Medications Acetaminophen (Acetaminophen 325 Mg Tablet) 650 mg PO Q6H PRN PRN PRN Reason: Pain Score 1-10/Temp > 100.7 F Albuterol Sulfate (Albuterol Sulfate 8 Gm Inhaler (60 Puffs)) 2 puff INHALATION Q2H PRN PRN PRN Reason: SOB/Wheezing Albuterol/Ipratropium (Ipratropium/Albuterol Sulfate 3 Ml Ampul.Neb) 3 ml INHALATION Q6HWA.RT [facility] Last Admin: 04/24/20 07:03 Dose: 3 ml Documented by: Apixaban (Apixaban 2.5 Mg Tablet) 2.5 mg PO BID [facility] Last Admin: 04/23/20 21:19 Dose: 2.5 mg Documented by: Atorvastatin Calcium (Atorvastatin Calcium 10 Mg Tablet) 10 mg PO DAILY [facility] Last Admin: 04/23/20 08:33 Dose: 10 mg Documented by: Dexamethasone Sodium Phosphate (Dexamethasone 10 Mg/Ml Vial) 6 mg IV DAILY [facility] Last Admin: 04/23/20 08:33 Dose: 6 mg Documented by: Dextrose (Dextrose 50%-Water 25 Gm/50 Ml Disp.Syrin) 0 gm IV X1 PRN; Protocol PRN Reason: Hypoglycemia Famotidine (Famotidine 20 Mg Tablet) 20 mg PO QHS [facility] Last Admin: 04/23/20 21:19 Dose: 20 mg Documented by: Glucagon (Glucagon 1 Mg/Ml Syringe) 1 mg IM .X1 PRN PRN Reason: Hypoglycemia Haloperidol Lactate (Haloperidol Lactate 5 Mg/Ml Vial) 3 - 5 mg IV Q6H PRN PRN PRN Reason: ANXIETY/AGITATION Last Admin: 04/20/20 23:45 Dose: 2 mg Documented by: Sodium Chloride () 250 mls @ 15 mls/hr IV .[id number] PRN PRN Reason: Saline Flush Sodium Chloride () 250 mls @ 15 mls/hr IV .[id number] PRN PRN Reason: Additional IVPB Infusion Piperacillin Sod/Tazobactam (Sod 3.375 gm/ Sodium Chloride) 50 mls @ 12.5 mls/hr IV Q8 [facility] Stop: 04/26/20 22:01 Last Admin: 04/24/20 05:40 Dose: 12.5 mls/hr Documented by: Insulin Glargine (Insulin Glargine 100 Units/Ml Pen) 40 units SC BID [facility] Last Admin: 04/23/20 21:18 Dose: 40 u Documented by: Insulin Human Lispro (Insulin Lispro 100 Unit/Ml Insuln.Pen) 0 unit SC ACHS [facility]; Protocol Last Admin: 04/23/20 21:18 Dose: 9 u Documented by: Levothyroxine Sodium (Levothyroxine 125 Mcg Tablet) 125 mcg PO DAILY [facility] Last Admin: 04/23/20 08:33 Dose: 125 mcg Documented by: Nystatin (Nystatin Powder 15gm Bottle) 1 applic TOPICAL BID [facility]; Protocol Last Admin: 04/23/20 21:19 Dose: 1 applic Documented by: Senna/Docusate Sodium (Senna/Docusate Sodium 1 Tablet) 2 tablet PO BID PRN PRN PRN Reason: CONSTIPATION Last Admin: 04/22/20 17:01 Dose: 2 tablet Documented by: Sodium Chloride (0.9% Saline Lock 10 Ml Syringe) 10 - 40 ml IV UD PRN PRN Reason: SALINE FLUSH Last Admin: 04/24/20 04:57 Dose: 10 ml Documented by: Sodium Chloride (0.9% Saline Lock 10 Ml Syringe) 10 - 40 ml IV UD PRN PRN Reason: SALINE FLUSH STROKE Vital Signs/Narrative: Vital Signs Temp Pulse Resp BP Pulse Ox 04/24/20 07:03 108 H 30 H 85 04/24/20 07:00 99.4 F H 107 H 34 H 184/71 H 85 04/24/20 06:00 92 34 H 150/68 H 90 04/24/20 04:59 99 F 88 28 H 161/74 H 89 04/24/20 04:04 76 04/24/20 04:00 99 F 76 32 H 141/72 H 90 Medical Necessity - Tobacco Use Smoking Status: Never smoker Tobacco Use: Non-smoker Assessment/Plan All Active Problems TIFFANI (acute kidney injury) (Acute) Acute respiratory failure with hypoxia (Acute) Sepsis (Acute) COVID-19 (Acute) Shortness of breath (Acute) Weakness (Acute) Nonproductive cough (Acute) Pneumonia due to COVID-19 virus (Acute) Patient is an 84-year-old gentleman with multiple comorbidities including diabetes mellitus type 2, hypothyroidism, dyslipidemia, hypertension who presented with progressive shortness of breath. An assessment of acute hypoxic respiratory failure was made. Imaging studies obtained on admission demonstrated Ill-defined subpleural groundglass opacities are seen more prominent in the lung bases. Subsequent COVID-19 assay came back positive admitted to the intensive care unit for subsequent management 1. Acute hypoxic respiratory failure ?Secondary to COVID-19 pneumonia. Admitted to the intensive care unit with consultation placed to pulmonary medicine. Patient placed on noninvasive ventilation Airvo - Patient seen remains in the ICU on high flow oxygen(Airvo heated high flow with an FiO2 requirement of 90% and flow rate of 60 L/min), apparently declined BiPAP. Went over patient's CODE STATUS with him as stated in the previous day notes patient elected to remain DO NOT RESUSCITATE Comfort Care arrest with no intubation. -Discussion with patient's son Derick Cole updated him on patient's current condition. Family is good to have a discussion and make decisions on how to proceed -04/23/2020: No significant change in patient's clinical condition remains on high flow noninvasive ventilation. -04/24/2020;Seen clinical condition continues to deteriorate. Patient oxygen saturation remains in the mid 80s despite being on high flow oxygen. He finally agreed to go on BiPAP. 2. Acute COVID-19 pneumonia ?Admitted to the intensive care unit managed noninvasive ventilation, supplemental oxygen, systemic steroid as well as remdesivir 3. Acute kidney injury ?Superimposed on chronic kidney disease. Monitoring electrolyte 4. Hypothyroidism - Patient is on levothyroxine home dose continued 5. Hypertension - Blood pressure controlled, home medications continued with dose adjustment as needed 6. Dyslipidemia -Patient is on statin therapy, continued at home dose 7. Diabetes mellitus type 2 ?With complications including diabetic nephropathy. On Accu-Cheks before meals and at bedtime with sliding scale coverage 8. Elevated D-dimer ?Secondary to patient underlying COVID-19 infection. Patient is currently on systemic anticoagulation ordered bilateral venous duplex to rule out lower extremity DVT. Plan is will be for patient to undergo VQ scan examination to rule out PE. The aim of this is to determine duration of treatment for patient's systemic anticoagulation. -04/12/2020. Venous duplex obtained the day prior was negative for DVT. 10. DVT prophylaxis ?Systemic anticoagulation Inpatient E&M: [id number] [facility] L3
[2020-04-24] MEDS: APIXABAN 2.5 MG TABLET PO ×2 (08:36→21:55)
[2020-04-24] MEDS: dexAMETHasone 10 MG/ML Vial 6 MG IV (08:36)
[2020-04-24] MEDS: Levothyroxine 125 MCG Tablet PO (08:36)
[2020-04-24] MEDS: Atorvastatin Calcium 10 MG Tablet PO (08:36)
[2020-04-24] MEDS: Furosemide 40 MG/4 ML Vial IV (08:46)
[2020-04-24 08:56] LABS: Bedside Glucose 96 mg/dL (70-110)
[2020-04-24] MEDS: Nystatin Powder 15gm Bottle 1 APPLIC TOPICAL ×2 (09:45→21:53)
--- NOTE | 2020-04-24 11:00 | NURSING ---
Pt wore bipap for approximately an hour. This RN and NIB INSPECTOR in at this time to reposition pt onto hovermat while on bipap and while turning, pt c/o of not being able to breathe, with blue lips and less responsive. Upon turning pt back to his back, bipap removed per request and pt placed back on airvo. Pt states he felt as though he was going to pass out. Pt states that he feels as though he is suffocating when the bipap is in place and is now adamantly refusing to wear it. Call placed to pt's per Ivanna Melton RN to request her to come in to discuss goals of care. Pt now just continues to state that he wishes to go home. Dr. Rosales made aware.
[2020-04-24 11:36] LABS: Bedside Glucose 123 mg/dL (70-110)
--- NOTE | 2020-04-24 12:26 | NURSING ---
Pt refusing to let this RN reapply ICU monitoring equipment
--- NOTE | 2020-04-24 12:49 | CASEMGMT ---
RN indicated patient is not wanting to continue at the hospital and would like to go home. She asked if SW could talk with patient and his . SW spoke with patient and his . DWAIN introduced self and role at [facility] [place]. SW explained that the only way he would be able to go home is if he was on Hospice. SW asked if he understands what Hospice is. He nodded his head. SW explained he would not return to the hospital and Hospice would just keep him comfortable. SW mentioned the Inpatient Hospice Unit, but patient really wants to go home. SW explained SW can try and see if Hospice could manage him at home due to his high O2 requirement. SW explained SW would make the referral and then Hospice would call patient's to discuss their services. She was concerned as she would prefer her son or daughter be with her as they understand more. She said it would be better if Hospice would call her son. SW told her SW will call her son and let him know what we are discussing. SW called patient's son, Derick. Introduced self and role at [facility] [place]. SW let him know that patient is wanting to go home on Hospice. He then had several medical questions. DWAIN told him SW will have the nurse or physician call him to answer his questions and then SW can get back in touch with him. SW notified RN who notified physician to call son. Await their discussion. Jessie HERNANDEZ
--- NOTE | 2020-04-24 13:13 | CASEMGMT ---
DWAIN called [facility]osp[facility] and left a message requesting a nurse call SW back regarding O2 at home. DWAIN also called patient's son, Derick and left him a voice mail requesting a return call. Await return calls. Jessie HERNANDEZ
--- NOTE | 2020-04-24 13:58 | CASEMGMT ---
Addendum entered by Jessie Tim 04/24/20 14:17: SW updated RN who in turn updated family. Jessie HERNANDEZ Original Note: SW called patient's son Derick. He was able to get his questions answered. SW let him know SW is going to make the referral to Hospice and his mom asked that they call him. He said that is fine and he usually answers his phone. DWAIN faxed referral to Hospice. DWAIN also called Hospice and spoke with Florence regarding referral. DWAIN told her about the high flow O2 and she was going to call their supply company to see what they can provide. Await return call from Hospice. Plan: Hospice is going to call the son to discuss their services. Florence at Hospice is calling their medical supply company to figure out the high flow O2 situation. Jessie HERNANDEZ
[2020-04-24] MEDS: Insulin Lispro 100 UNIT/ML INSULN.PEN SC ×2 (15:57→21:42)
[2020-04-24 16:06] LABS: Bedside Glucose 182 mg/dL (70-110)
--- NOTE | 2020-04-24 16:11 | CASEMGMT ---
DWAIN spoke with Florence at Hospice. She was able to figure out what to do for patient's O2 requirements. She did talk with patient's son, Derick. Hospice asked if patient could be discharged home tomorrow so they can set everything up in the home. DWAIN spoke with machine cementer and patient will stay overnight. DWAIN also spoke with patient, his , and daughter letting them know that patient will be staying until tomorrow. They were all okay with this plan. It was decided that he would need an ambulance ride home. DWAIN told them SW will be in touch with them tomorrow. RN was also updated. Plan: Home with Hospice tomorrow. Jessie JEONG MSW
--- NOTE | 2020-04-24 20:49 | NURSING ---
Pt trying to turn in bed, hr alarming 130's. This RN entered his room, patient states he is hot and trying to turn. Pt pulled up in bed spo2 66% on airvo. Repiratory in room, pt pulled up in bed, pt tachypneic, PSN giving breathing treatment.
[2020-04-24] MEDS: Haloperidol Lactate 5 MG/ML Vial IV (21:50)
[2020-04-24] MEDS: Famotidine 20 MG Tablet PO (21:55)
--- NOTE | 2020-04-24 22:00 | NURSING ---
Pt restless, moaning RR 40s. Pt given prn haldol for anxiety/agitation. Pt pulling at gown, fidgety in bed. 3mg ivp haldol given.
[2020-04-24 22:10] LABS: Bedside Glucose 402 mg/dL (70-110)
[2020-04-25] VITALS (11 sets, daily range): BP systolic 102–153; BP diastolic 60–110; PULSE 67–120; RESP 12–44; TEMP 36.1–36.6; O2SAT 79–92
--- NOTE | 2020-04-25 00:40 | CPS ---
pt Ripped off AirVo Cannula and SATS dropped into the 50%s. Nursing placed pt on BiPAP
--- NOTE | 2020-04-25 00:45 | NURSING ---
Pt with airvo off, torn in two. BIpap placed by this Rn. Pt restless attempting to pull out iv. Pt redirected, order for 1mg ivp ativan recieved. Family called due to o2 sat in 60-70's.
[2020-04-25] MEDS: LORazepam 2 MG/ML Syringe 1 MG IV (00:55)
--- NOTE | 2020-04-25 01:58 | NURSING ---
Patients and son at bedside. updated on condition.
--- NOTE | 2020-04-25 02:45 | NURSING ---
pt with cpot of 7, morphine 2mg given. family at bedside, denies questions or needs
[2020-04-25] MEDS: Morphine 2 MG/ML Syringe IV (02:57)
[2020-04-25] MEDS: 0.9% Saline Lock 10 ML Syringe IV (02:58)
--- NOTE | 2020-04-25 04:48 | NURSING ---
Patients family requesting no labs to be drawn.
--- NOTE | 2020-04-25 06:35 | NURSING ---
Patients family wishing to hold off on antibiotics until they speak with the MD.
[2020-04-25] MEDS: morphine (oral solution) 10MG/0.5ML Syringe 10 MG SL/PO (08:38)
--- NOTE | 2020-04-25 08:41 | NURSING ---
Family requested Airvo be removed for patient comfort at this time
--- NOTE | 2020-04-25 09:52 | PCM.PN.HOSP ---
Patient Problems: Active and Suspected Problems TIFFANI (acute kidney injury) (Acute) Acute respiratory failure with hypoxia (Acute) Sepsis (Acute) COVID-19 (Acute) Shortness of breath (Acute) Weakness (Acute) Nonproductive cough (Acute) Pneumonia due to COVID-19 virus (Acute) Reason for Visit: COVID-19 infection Subjective: Patient is an 84-year-old gentleman with multiple comorbidities including diabetes mellitus type 2, hypothyroidism, dyslipidemia, hypertension who presented with progressive shortness of breath. An assessment of acute hypoxic respiratory failure was made. Imaging studies obtained on admission demonstrated Ill-defined subpleural groundglass opacities are seen more prominent in the lung bases. Subsequent COVID-19 assay came back positive admitted to the intensive care unit for subsequent management Patient clinical condition continued to deteriorate despite optimal treatment. Had a family discussion on the morning of 04/25/2020. Decision was made to change patient CODE STATUS from DNR CCA to DNR CC. Aggressive treatment discontinued palliative/hospice symptom management initiated patient transferred from the ICU to [place] to Covid unit Objective: GENERAL: Patient unresponsive HEENT: Atraumatic; EYES; Anicteric, Normal Conjunctiva NECK; supple, normal thyroid, RESPIRATORY: Diminished to auscultation CARDIOVASCULAR: Regular S1 S2, tachycardic GI: soft, normoactive bowel sounds, : No Renal angle tenderness; EXTREMITIES: No edema, no clubbing, MUSCULOSKELETAL: no muscle waisting NEURO: Noncommunicative SKIN: No Rash Vitals/I&O's: Vital Signs Temp Pulse Resp BP Pulse Ox 98 F 67 29 H 124/62 H 92 04/25/20 04:00 04/25/20 07:31 04/25/20 07:00 04/25/20 07:00 04/25/20 07:00 Oxygen Flow Rate (L/min) 60 Oxygen Delivery Method Airvo Weight: 109.815 kg Body Mass Index (BMI) 38.0 Intake and Output for Last 24 Hours 04/23/20 04/24/20 04/25/20 23:59 23:59 23:59 Intake Total 400 / 400 280 / 380 150 / 150 Output Total 2100 / 2400 3075 / 3475 875 / 875 Balance -1700 / -2000 -2795 / -3095 -725 / -725 Microbiology Past 72 Hours 04/19/20 06:08 Blood Culture (Wb) - Anticubital Left Blood Culture - Final No growth in 5 days. 04/19/20 06:08 Blood Culture (Wb) - Anticubital Right Blood Culture - Final No growth in 5 days. Laboratory Results 04/24/20 11:15: POC Glucose 123 H 04/24/20 15:50: POC Glucose 182 H 04/24/20 21:41: POC Glucose 402 H Current Medications Acetaminophen (Acetaminophen 325 Mg Tablet) 650 mg PO Q6H PRN PRN PRN Reason: Pain Score 1-10/Temp > 100.7 F Acetaminophen (Acetaminophen 650 Mg Suppository) 650 mg RECTAL Q4H PRN PRN PRN Reason: Temp>101F or Pain Score 1-10 Al Hydroxide/Mg Hydroxide (Mag Hydrox/Al Hydrox/Simeth 30 Ml Udc) 30 ml PO Q4H PRN PRN PRN Reason: Epigastric Distress Albuterol Sulfate (Albuterol Sulfate 8 Gm Inhaler (60 Puffs)) 2 puff INHALATION Q2H PRN PRN PRN Reason: SOB/Wheezing Atropine Sulfate (Atropine Sulfate 1% 2 Ml Bottle) 4 drop PO Q3H PRN PRN PRN Reason: Congestion Diphenhydramine HCl (Diphenhydramine 25 Mg Capsule) 25 mg PO Q4H PRN PRN PRN Reason: Extrapyridimal Spasm/Itching Famotidine (Famotidine 20 Mg Tablet) 20 mg PO QHS [facility] Last Admin: 04/24/20 21:55 Dose: 20 mg Documented by: Guaifenesin (Guaifenesin Dm 10 Ml Udc) 5 - 10 ml PO Q4H PRN PRN PRN Reason: Non-Productive Cough Haloperidol Lactate (Haloperidol Lactate 5 Mg/Ml Vial) 3 - 5 mg IV Q6H PRN PRN PRN Reason: ANXIETY/AGITATION Last Admin: 04/24/20 21:50 Dose: 3 mg Documented by: Haloperidol Lactate (Haloperidol Lactate 10 Mg/5 Ml Udc) 1 mg SL/PO Q1H PRN PRN PRN Reason: Hyperactivity/Anxiety Sodium Chloride () 250 mls @ 15 mls/hr IV .[id number] PRN PRN Reason: Saline Flush Sodium Chloride () 250 mls @ 15 mls/hr IV .[id number] PRN PRN Reason: Additional IVPB Infusion Lorazepam (Lorazepam 0.5 Mg Tablet) 0.5 mg SL/PO Q3H PRN PRN PRN Reason: Restlessness/Anxiety Morphine Sulfate (Morphine (Oral Solution) 10mg/0.5ml Syringe) 10 mg SL/PO Q1H PRN PRN PRN Reason: Pain Score 6-10 Last Admin: 04/25/20 08:38 Dose: 10 mg Documented by: Nystatin (Nystatin Powder 15gm Bottle) 1 applic TOPICAL BID [facility]; Protocol Last Admin: 04/24/20 21:53 Dose: 1 applic Documented by: Senna/Docusate Sodium (Senna/Docusate Sodium 1 Tablet) 2 tablet PO BID PRN PRN PRN Reason: CONSTIPATION Last Admin: 04/22/20 17:01 Dose: 2 tablet Documented by: Sodium Chloride (0.9% Saline Lock 10 Ml Syringe) 10 - 40 ml IV UD PRN PRN Reason: SALINE FLUSH Last Admin: 04/25/20 02:58 Dose: 10 ml Documented by: Sodium Chloride (0.9% Saline Lock 10 Ml Syringe) 10 - 40 ml IV UD PRN PRN Reason: SALINE FLUSH STROKE Vital Signs/Narrative: Vital Signs Pulse Resp BP Pulse Ox 04/25/20 07:31 67 04/25/20 07:00 68 29 H 124/62 H 92 04/25/20 06:00 74 35 H 121/60 H 90 Medical Necessity - Tobacco Use Smoking Status: Never smoker Tobacco Use: Non-smoker Assessment/Plan All Active Problems TIFFANI (acute kidney injury) (Acute) Acute respiratory failure with hypoxia (Acute) Sepsis (Acute) COVID-19 (Acute) Shortness of breath (Acute) Weakness (Acute) Nonproductive cough (Acute) Pneumonia due to COVID-19 virus (Acute) Patient is an 84-year-old gentleman with multiple comorbidities including diabetes mellitus type 2, hypothyroidism, dyslipidemia, hypertension who presented with progressive shortness of breath. An assessment of acute hypoxic respiratory failure was made. Imaging studies obtained on admission demonstrated Ill-defined subpleural groundglass opacities are seen more prominent in the lung bases. Subsequent COVID-19 assay came back positive admitted to the intensive care unit for subsequent management 1. Acute hypoxic respiratory failure ?Secondary to COVID-19 pneumonia. Admitted to the intensive care unit with consultation placed to pulmonary medicine. Patient placed on noninvasive ventilation Airvo - Patient seen remains in the ICU on high flow oxygen(Airvo heated high flow with an FiO2 requirement of 90% and flow rate of 60 L/min), apparently declined BiPAP. Went over patient's CODE STATUS with him as stated in the previous day notes patient elected to remain DO NOT RESUSCITATE Comfort Care arrest with no intubation. -Discussion with patient's son Derick Cole updated him on patient's current condition. Family is good to have a discussion and make decisions on how to proceed -04/23/2020: No significant change in patient's clinical condition remains on high flow noninvasive ventilation. -04/24/2020;Seen clinical condition continues to deteriorate. Patient oxygen saturation remains in the mid 80s despite being on high flow oxygen. He finally agreed to go on BiPAP. 04/25/2020;; patient clinical condition continues to deteriorate despite optimal treatment. Patient weaned off BiPAP palliative care and symptom management initiated. Prognosis remains grave at this point. 2. Acute COVID-19 pneumonia ?Admitted to the intensive care unit managed noninvasive ventilation, supplemental oxygen, systemic steroid as well as remdesivir 3. Acute kidney injury ?Superimposed on chronic kidney disease. Monitoring electrolyte 4. Hypothyroidism - Patient is on levothyroxine home dose continued 5. Hypertension - Blood pressure controlled, home medications continued with dose adjustment as needed 6. Dyslipidemia -Patient is on statin therapy, continued at home dose 7. Diabetes mellitus type 2 ?With complications including diabetic nephropathy. On Accu-Cheks before meals and at bedtime with sliding scale coverage 8. Elevated D-dimer ?Secondary to patient underlying COVID-19 infection. Patient is currently on systemic anticoagulation ordered bilateral venous duplex to rule out lower extremity DVT. Plan is will be for patient to undergo VQ scan examination to rule out PE. The aim of this is to determine duration of treatment for patient's systemic anticoagulation. -04/12/2020. Venous duplex obtained the day prior was negative for DVT. 10. DVT prophylaxis ?Systemic anticoagulation Advance planning; Patient clinical condition continued to deteriorate despite optimal treatment. Had a family discussion on the morning of 04/25/2020. Decision was made to change patient CODE STATUS from DNR CCA to DNR CC. Aggressive treatment discontinued palliative/hospice symptom management initiated patient transferred from the ICU to [place] to [facility] unit total time spent on discussion 25 minutes Inpatient E&M: 69614 Subs Hosp L2 Procedures: 54468 Advncd Care Plan 30 Min
--- NOTE | 2020-04-25 10:14 | PCM.DEATH ---
Preliminary Cause of COVID-19 pneumonia Date of Admission: 04/19/20 Date of : 04/25/20 - Principle Diagnosis Problem List: Active and Suspected Problems TIFFANI (acute kidney injury) (Acute) Acute respiratory failure with hypoxia (Acute) Sepsis (Acute) COVID-19 (Acute) Shortness of breath (Acute) Weakness (Acute) Nonproductive cough (Acute) Pneumonia due to COVID-19 virus (Acute) Hospital Course Patient is an 84-year-old gentleman with multiple comorbidities including diabetes mellitus type 2, hypothyroidism, dyslipidemia, hypertension who presented with progressive shortness of breath. An assessment of acute hypoxic respiratory failure was made. Imaging studies obtained on admission demonstrated Ill-defined subpleural groundglass opacities are seen more prominent in the lung bases. Subsequent COVID-19 assay came back positive admitted to the intensive care unit for subsequent management Patient clinical condition continued to deteriorate despite optimal treatment. Had a family discussion on the morning of 04/25/2020. Decision was made to change patient CODE STATUS from DNR CCA to DNR CC. Aggressive treatment discontinued palliative/hospice symptom management initiated Patient was found with a spontaneous heart tones as well as respiration. Patient was pronounced heart 0950 on 04/25/2020. Family was at bedside. Inpatient E&M: [id number] Disch Hosp
--- NOTE | 2020-04-25 10:59 | NURSING ---
0947 time of . , son and daughter at bedside to witness. All personal belongings (dentures, hearing aids, cell phon, dynamite packing machine feeder) sent home with family. Family requested [facility]. Arrangements were made for pickle processor and body will be brought to the morgue.
== END 2020-04-25 09:50 | DRG 871 ==
LOC: ED 06:50 → ICU 08:37
PROVIDERS: Internal Medicine; Internal Medicine Critical Care Medicine; Admitting Provider Internal Medicine; Emergency Provider Emergency Medicine; PCP Family Medicine; Visit Provider Internal Medicine
DX: A41.89 Other specified sepsis (principal); U07.1 COVID-19; J12.89 Other viral pneumonia; J96.01 Acute respiratory failure with hypoxia; E43 Unspecified severe protein-calorie malnutrition; N17.9 Acute kidney failure, unspecified; E87.1 Hypo-osmolality and hyponatremia; R65.20 Severe sepsis without septic shock; R79.89 Other specified abnormal findings of blood chemistry; E03.9 Hypothyroidism, unspecified; E11.22 Type 2 diabetes mellitus with diabetic chronic kidney disease; I12.9 Hypertensive chronic kidney disease with stage 1 through stage 4 chronic kidney disease, or unspecified chronic kidney disease; N18.30 Chronic kidney disease, stage 3 unspecified; E78.5 Hyperlipidemia, unspecified; E66.9 Obesity, unspecified; J45.909 Unspecified asthma, uncomplicated; Z68.38 Body mass index [BMI] 38.0-38.9, adult; Z79.4 Long term (current) use of insulin; Z79.01 Long term (current) use of anticoagulants; Z66 Do not resuscitate
CPT/HCPCS: 36415; 36600; 71045; 80048; 80053; 82803; 82962; 83605; 83735; 83880; 84075; 84145; 84484; 85025; 85027; 85379; 86140; 86850; 86900; 86901; 87040; 87635; 93005; 93970; 94002; 94003; 94640; 94660; 94760; 97803; 99251; 99283; 99285; J7030; J7050; A4216; G0463; J1940; U0003